=== PATIENT | male | born 1960 | race Caucasian/White ===

== ENCOUNTER 2023-06-01 06:18 | Outpatient (REF) | payer MEDICARE, SELFPAY ==
[2023-06-01 06:26] LABS: MANUAL DIFF FLAG NO
[2023-06-01 06:37] LABS: Basophils Percent Auto 0.7 % (0-2); Eosinophils Absolute Auto 0.1 X10*3/uL (0.0-0.4); Eosinophils Percent Auto 3.1 % (0-4); Hematocrit 36.2 % (42.0-52.0); Hemoglobin 12.3 g/dl (14.0-18.0); Imm Gran Abs Auto 0.02 X10*3/uL (0.00-0.03); Imm Gran Pct Auto 0.4 % (0.0-0.4); Lymphocytes Absolute Auto 1.8 X10*3/uL (1.2-4.9); Mean Corpuscular Hemoglobin 31.3 pg (27.0-33.0); Mean Corpuscular Volume 92.1 fL (80.0-98.0); Mean Platelet Volume 10.2 fL (9.4-12.4); Monocytes Absolute Auto 0.5 X10*3/uL (0.1-1.2); Monocytes Percent Auto 10.4 % (2-11); Neutrophils Absolute Auto 2.1 x10*3/uL (2.0-8.3); Neutrophils Percent Auto 46.4 % (45-73); Platelet Count 150 X10*3/uL (160-400); Red Blood Count 3.93 X10*6/uL (4.60-5.80); Red Cell Distribution Width 12.5 % (11.0-16.0); White Blood Count 4.5 X10*3/uL (4.8-10.8)
[2023-06-01 06:46] LABS: Valproate 26.4 mcg/mL (50.0-100.0)
[2023-06-01 06:53] LABS: Estimated Average Glucose 120 mg/dL; Hemoglobin A1c % 5.8 %
[2023-06-01 06:57] LABS: Alanine Aminotransferase 9 U/L (0-40); Albumin Level 3.5 g/dL (3.5-5.0); Alkaline Phosphatase 78 U/L (39-117); Anion Gap 13 (12-20); Aspartate Amino Transferase 13 U/L (5-37); Bilirubin Total 0.2 mg/dL (0.0-1.0); Blood Urea Nitrogen 17 mg/dL (9-16); Calcium 9.2 mg/dL (8.4-10.2); Carbon Dioxide 23 mmol/L (22-29); Chloride 110 mmol/L (96-108); Estimated Glomerular Filt Rate > 60; Glucose Fasting 111 mg/dL (60-99); Iron 61 mcg/dL (45-160); Percent Iron Saturation 26 % (15-50); Potassium 4.2 mmol/L (3.3-5.1); Sodium 142 mmol/L (135-145); Total Iron Binding Capacity 235 mcg/dL (228-428); Total Protein 6.1 g/dL (6.5-8.0); Unsaturated Iron Binding 174 ug/dL
[2023-06-01 07:12] LABS: Ferritin 92 ng/mL (20-250); Thyroid Stimulating Hormone 1.65 uIU/mL (0.32-4.0)
[2023-06-01 07:24] LABS: Folate 5.5 ng/mL (> or = 4.0); Vitamin B12 430 pg/mL (200-900)
[2023-06-04 04:49] LABS: TS Negative Control Passed; TS Panel A 2; TS Panel B 2; TS Positive Control Passed; TSpotTB Negative (Negative)
== END 2023-06-01 06:19 | disposition home or self-care (01) ==
LOC: HO.HSH2N 06:18
PROVIDERS: Visit Provider Internal Medicine
DX: Z11.1 Encounter for screening for respiratory tuberculosis (principal); F03.90 Unspecified dementia, unspecified severity, without behavioral disturbance, psychotic disturbance, mood disturbance, and anxiety; E11.9 Type 2 diabetes mellitus without complications; D69.6 Thrombocytopenia, unspecified
CPT/HCPCS: 36415; 80053; 80164; 82607; 82728; 82746; 83036; 83540; 84443; 85025; 86481

== ENCOUNTER 2023-08-01 11:38 | Outpatient (REF) | payer SELFPAY | END 2023-08-01 11:39 | disposition home or self-care (01) | LOC: HO.HSH2N 11:38 | PROVIDERS: Visit Provider Internal Medicine Interventional Cardiology | DX: Z13.89 Encounter for screening for other disorder (principal) ==

== ENCOUNTER 2023-12-04 05:04 | Outpatient (REF) | payer MEDICARE, SELFPAY ==
[2023-12-04 07:01] LABS: MANUAL DIFF FLAG NO
[2023-12-04 07:12] LABS: Basophils Percent Auto 0.7 % (0-2); Eosinophils Absolute Auto 0.1 X10*3/uL (0.0-0.4); Eosinophils Percent Auto 2.2 % (0-4); Hematocrit 41.1 % (42.0-52.0); Imm Gran Abs Auto 0.03 X10*3/uL (0.00-0.03); Imm Gran Pct Auto 0.5 % (0.0-0.4); Lymphocytes Absolute Auto 1.6 X10*3/uL (1.2-4.9); Lymphocytes Percent Auto 25.8 % (20-40); Mean Corpuscular HGB Conc 34.1 g/dl (31.0-36.0); Mean Corpuscular Hemoglobin 30.6 pg (27.0-33.0); Mean Corpuscular Volume 89.7 fL (80.0-98.0); Mean Platelet Volume 9.4 fL (9.4-12.4); Monocytes Absolute Auto 0.6 X10*3/uL (0.1-1.2); Monocytes Percent Auto 9.3 % (2-11); Neutrophils Absolute Auto 3.7 x10*3/uL (2.0-8.3); Neutrophils Percent Auto 61.5 % (45-73); Platelet Count 147 X10*3/uL (160-400); Red Blood Count 4.58 X10*6/uL (4.60-5.80); Red Cell Distribution Width 12.9 % (11.0-16.0)
[2023-12-04 07:22] LABS: Estimated Average Glucose 174 mg/dL; Hemoglobin A1c % 7.7 % (<6.0)
[2023-12-04 07:25] LABS: Anion Gap 12 (12-20); Blood Urea Nitrogen 16 mg/dL (9-16); Carbon Dioxide 27 mmol/L (22-29); Chloride 107 mmol/L (96-108); Estimated Glomerular Filt Rate > 60; Glucose Fasting 193 mg/dL (60-99); Potassium 4.4 mmol/L (3.3-5.1); Sodium 142 mmol/L (135-145)
== END 2023-12-04 05:05 | disposition home or self-care (01) ==
LOC: HO.HSH2N 05:04
PROVIDERS: Visit Provider Internal Medicine Interventional Cardiology
DX: E11.9 Type 2 diabetes mellitus without complications (principal); D69.6 Thrombocytopenia, unspecified
CPT/HCPCS: 36415; 80048; 83036; 85025

== ENCOUNTER 2023-12-29 05:57 | Outpatient (REF) | payer SELFPAY ==
[2023-12-29 06:41] LABS: Estimated Average Glucose 183 mg/dL
== END 2023-12-29 05:58 | disposition home or self-care (01) ==
LOC: HO.HSH2N 05:57
PROVIDERS: Visit Provider Internal Medicine Interventional Cardiology
DX: E11.9 Type 2 diabetes mellitus without complications (principal)
CPT/HCPCS: 36415; 83036

== ENCOUNTER 2024-01-05 06:53 | Outpatient (REF) | payer MEDICARE, SELFPAY ==
[2024-01-05 07:10] LABS: Estimated Average Glucose 180 mg/dL; Hemoglobin A1c % 7.9 % (<6.0)
== END 2024-01-05 06:54 | disposition home or self-care (01) ==
LOC: HO.HSH2N 06:53
PROVIDERS: Visit Provider Internal Medicine Interventional Cardiology
DX: E11.9 Type 2 diabetes mellitus without complications (principal)
CPT/HCPCS: 36415; 83036

== ENCOUNTER 2024-02-12 05:53 | Outpatient (REF) | payer SELFPAY ==
[2024-02-12 06:32] LABS: Estimated Average Glucose 183 mg/dL
== END 2024-02-12 05:54 | disposition home or self-care (01) ==
LOC: HO.HSH2N 05:53
PROVIDERS: Visit Provider Internal Medicine Interventional Cardiology
DX: Z13.89 Encounter for screening for other disorder (principal)
CPT/HCPCS: 36415; 83036

== ENCOUNTER 2024-06-11 07:05 | Outpatient (REF) | payer SELFPAY ==
[2024-06-11 07:09] LABS: MANUAL DIFF FLAG NO
[2024-06-11 07:38] LABS: Basophils Percent Auto 0.5 % (0-2); Eosinophils Absolute Auto 0.1 X10*3/uL (0.0-0.4); Hematocrit 42.1 % (42.0-52.0); Hemoglobin 14.4 g/dl (14.0-18.0); Imm Gran Abs Auto 0.03 X10*3/uL (0.00-0.03); Imm Gran Pct Auto 0.5 % (0.0-0.4); Lymphocytes Absolute Auto 1.8 X10*3/uL (1.2-4.9); Lymphocytes Percent Auto 27.2 % (20-40); Mean Corpuscular HGB Conc 34.2 g/dl (31.0-36.0); Mean Corpuscular Hemoglobin 31.3 pg (27.0-33.0); Mean Corpuscular Volume 91.5 fL (80.0-98.0); Mean Platelet Volume 9.9 fL (9.4-12.4); Monocytes Absolute Auto 0.6 X10*3/uL (0.1-1.2); Monocytes Percent Auto 9.3 % (2-11); Neutrophils Absolute Auto 3.9 x10*3/uL (2.0-8.3); Neutrophils Percent Auto 60.5 % (45-73); Platelet Count 164 X10*3/uL (160-400); White Blood Count 6.5 X10*3/uL (4.8-10.8)
[2024-06-11 07:58] LABS: Valproate 28.1 mcg/mL (50.0-100.0)
[2024-06-11 08:02] LABS: Alanine Aminotransferase 15 U/L (0-40); Albumin Level 3.8 g/dL (3.5-5.0); Alkaline Phosphatase 69 U/L (39-117); Anion Gap 15 (12-20); Aspartate Amino Transferase 14 U/L (5-37); Bilirubin Total 0.4 mg/dL (0.0-1.0); Blood Urea Nitrogen 13 mg/dL (9-16); Calcium 9.3 mg/dL (8.4-10.2); Carbon Dioxide 21 mmol/L (22-29); Chloride 109 mmol/L (96-108); Estimated Glomerular Filt Rate > 60; Glucose Random 133 mg/dL (60-115); Potassium 4.1 mmol/L (3.3-5.1); Sodium 141 mmol/L (135-145); Total Protein 6.6 g/dL (6.5-8.0)
[2024-06-11 08:03] LABS: Estimated Average Glucose 140 mg/dL; Hemoglobin A1c % 6.5 % (<6.0)
[2024-06-11 08:17] LABS: Thyroid Stimulating Hormone 1.85 uIU/mL (0.32-4.0)
== END 2024-06-11 07:06 | disposition home or self-care (01) ==
LOC: HO.HSH2N 07:05
PROVIDERS: Visit Provider Internal Medicine Interventional Cardiology
DX: F03.90 Unspecified dementia, unspecified severity, without behavioral disturbance, psychotic disturbance, mood disturbance, and anxiety (principal); E11.9 Type 2 diabetes mellitus without complications
CPT/HCPCS: 36415; 80053; 80164; 83036; 84443; 85025

== ENCOUNTER 2024-07-08 09:23 | Inpatient (IN) | payer OTHER, MEDICARE, SELFPAY ==
[2024-07-08] VITALS (7 sets, daily range): BP systolic 92–134; BP diastolic 41–71; PULSE 37–99; RESP 15–20; TEMP 36.4–36.8; O2SAT 91–99; BMI 28.2
--- NOTE | ~2024-07-08 | CT_ITS ---
EXAMINATION: CT HEAD WITHOUT CONTRAST CLINICAL INFORMATION: Seizure. COMPARISON: None available. TECHNIQUE: Contiguous axial imaging was performed from the skull base to vertex without intravenous administration of contrast. This CT examination was performed using dose optimization techniques as appropriate, variously including the following: *Automated exposure control *Adjustment of mA and/or kV according to patient size (this includes techniques or standardized protocols for targeted exams where dose is matched to indication/reason for exam; i.e. extremities or head) *Use of iterative reconstruction technique DLP: 697 mGy-cm FINDINGS: There is no evidence of acute intracranial hemorrhage or territorial infarction. No mass effect or midline shift is seen. No extra-axial fluid collections are identified. Proportional prominence of the ventricles and sulcal spaces is consistent with moderate volume loss. Patchy periventricular and deep white matter hypoattenuation is consistent with mild small vessel ischemic changes. The osseous structures and soft tissues are normal. The mastoid air cells and visualized portions of the paranasal sinuses are well aerated. CT/CT head/brain wo IV con IMPRESSION: No acute intracranial pathology. Electronically signed by: Niels Morales MD 07/08/2024 11:59 AM EDT
--- NOTE | ~2024-07-08 | XR_ITS ---
EXAMINATION: XR CHEST CLINICAL INFORMATION: Seizure. COMPARISON: None available. TECHNIQUE: Frontal view of the chest was obtained. FINDINGS: Linear scarring versus atelectasis in the right midlung. The lungs are otherwise clear. The cardiomediastinal silhouette is normal in size. There is no pleural effusion or pneumothorax. No acute osseous abnormality. XR/XR chest 1V IMPRESSION: No acute cardiopulmonary findings. Electronically signed by: Dejon Alexis MD 07/08/2024 12:02 PM EDT
--- NOTE | 2024-07-08 09:43 | ED_ITS ---
HPI - General Adult General Chief complaint: Seizure Stated complaint: SZ FROM SNF PER EMS Time Seen by Provider: 07/08/24 09:43 Source: patient and EMS Mode of arrival: EMS Limitations: physical limitation (patient has a history of Alzheimer's disease) History of Present Illness ED Provider: Myesha Tanner PA-C HPI narrative: Patient is a 64 year old assigned male at with a history of Alzheimer's, dementia, seizure disorder, dysphasia, anxiety, and aphasia presenting to the emergency department today after a possible seizure. [facility] staff states that the patient had a brief episode of unresponsiveness and came out of it. Staff states that it was like a seizure, patient has a known seizure disorder but no cardiac history. Relieving factors: none Exacerbating factors: none Associated symptoms: syncope Treatments prior to arrival: none Related Data Home Medications ?Medication ?Instructions ?Recorded ?Confirmed acetaminophen 325 mg tablet 325 mg PO Q4H PRN pain or fever 07/08/24 07/08/24 bisacodyl 5 mg tablet 5 mg PO BEDTIME PRN Constipation 07/08/24 07/08/24 chlorhexidine gluconate 0.12 % 15 ml buccal BEDTIME 07/08/24 07/08/24 mouthwash divalproex 125 mg tablet,delayed 375 mg PO BID 07/08/24 07/08/24 release gabapentin 100 mg capsule 100 mg PO BID 07/08/24 07/08/24 gabapentin 100 mg capsule 100 mg PO Q8H PRN anxiety/agitation 07/08/24 07/08/24 glipizide 5 mg tablet 5 mg PO DAILY 07/08/24 07/08/24 metformin 500 mg tablet 500 mg PO BID 07/08/24 07/08/24 tamsulosin 0.4 mg capsule 0.4 mg PO BEDTIME 07/08/24 07/08/24 Allergies Allergy/AdvReac Type Severity Reaction Status Date / Time codeine Allergy Unknown Verified 07/08/24 09:52 Penicillins Allergy Unknown Verified 07/08/24 09:52 Review of Systems 2 Review of Systems: Yes Other (patient has a history of Alzheimer's and dementia) Cardiovascular: Cardiovascular: Reports syncope Neurologic: Reports confusion (at baseline) and Reports syncope Psychiatric: Psychiatric: Reports confusion (at baseline) PMFSH Past Medical History Attestation statement: The following information was validated with the patient. Source: old records reviewed, nursing notes reviewed and other (all history obtained from [facility] staff) Social History Social History Unable to assess alcohol history related to: Unknown Use of substances other than those prescribed or required for medical reasons: Unknown Advance Directives: Yes Advance Directives on File: Yes Advance Directives Date on File: 07/08/24 Do you have a plan to hurt others: No Plan Physical Exam ED Vital Signs: Vital Signs - 24 hr 07/08/24 09:35 07/08/24 10:02 07/08/24 10:39 Temperature 98.0 F 97.6 F Pulse Rate 94 78 37 L Respiratory Rate 18 17 Blood Pressure 99/71 97/65 Pulse Oximetry 91 L 95 Oxygen Delivery Method Room Air Room Air BMI result Body Mass Index 28.2 Const General: cooperative, no acute distress, alert, awake and confusion (at baseline) Nutritional Appearance: well nourished Orientation/consciousness: confusion (at baseline) Limitations: no limitations HENMT Head: Yes normal to inspection and Yes atraumatic Ears: hearing grossly normal bilaterally and external ears normal General nose exam: Normal external nose present, no nasal discharge noted and no epistaxis Face and sinus: Yes normal facial exam, No abrasion and No laceration Mouth: Normal oral and palatal mucosa present, no drooling and no muffled voice Eyes General: appearance normal, both eyes and all related structures Periorbital: periorbital findings normal Eyelids: Yes eyelids normal Conjunctivae: conjunctivae normal Pupils: Equal, round and reactive pupils present EOM: EOMs intact bilaterally Neck Neck: Yes normal visual inspection, Yes full ROM and Yes no lymphadenopathy Chest Chest palpation & inspection: normal inspection of the chest Resp Effort & Inspection: normal respiratory effort and able to speak in complete sentences GI Inspection: Yes normal to inspection Neuro General: moves all extremities and confusion (at baseline) Cranial nerves: Yes Equal, round and reactive pupils present Extrem General: Yes normal to inspection, Yes full ROM and Yes capillary refill normal Medical Decision Making Medical Decision Making MDM Narrative: Patient is a 64 year old assigned male at with a history of Alzheimer's, dementia, seizure disorder, dysphasia, anxiety, and aphasia presenting to the emergency department today after a possible seizure. Patient's physical exam is consistent with his baseline. Patient's blood work was unremarkable. Patient's EKG was unremarkable. Patient's chest x-ray and head CT showed no acute process. While in the department, the patient had a long cardiac pause consistent with symptomatic bradycardia. I consulted the commercial airline pilot who recommended medical admission for possible pacemaker placement. I spoke to the patient's who stated she would like to hear from the commercial airline pilot before consenting to the procedure. I spoke to the hospitalist team who agreed to admission. I explained my physical exam findings as well as all test results to the patient and the patient's . I answered all questions asked by the patient and the patient's . Patient's verbalized agreement and understanding with this treatment plan and admission. Differential Diagnosis Differential Diagnoses: The differential diagnosis associated with the presentation includes Bradycardia Syncope Seizure Admission/Observation Consideration of admission/observation: Escalation of care including admission/observation considered Patient admitted. Consult Healthcare Provider Management of the patient was discussed with: Hospitalist (agreed to admission as noted in the MDM Rationale portion of this note. ) and Hand Quilter (spoke to the commercial airline pilot as noted in the MDM Rationale portion of this note.) Lab Data [facility] Lab Attestation statement: I reviewed the patient's lab results. My interpretation of these results are in the MDM Rationale portion of this note. 07/08/24 10:38 07/08/24 10:38 Labs: Lab Results 07/08/24 Range/Units 10:38 WBC 6.9 (4.8-10.8) X10*3/uL RBC 4.73 (4.60-5.80) X10*6/uL Hgb 15.0 (14.0-18.0) g/dl Hct 43.3 (42.0-52.0) % MCV 91.5 (80.0-98.0) fL MCH 31.7 (27.0-33.0) pg MCHC 34.6 (31.0-36.0) g/dl RDW 12.9 (11.0-16.0) % Plt Count 161 (160-400) X10*3/uL MPV 9.4 (9.4-12.4) fL Immature Gran % (Auto) 0.4 (0.0-0.4) % Neut % (Auto) 74.2 H (45-73) % Lymph % (Auto) 17.2 L (20-40) % Dale % (Auto) 7.0 (2-11) % Eos % (Auto) 0.6 (0-4) % Baso % (Auto) 0.6 (0-2) % Lymph # (Auto) 1.2 (1.2-4.9) X10*3/uL [place] # (Auto) 0.5 (0.1-1.2) X10*3/uL Eos # (Auto) 0.0 (0.0-0.4) X10*3/uL Baso # (Auto) 0.0 (0.0-0.2) X10*3/uL Abs Immat Gran (auto) 0.03 (0.00-0.03) X10*3/uL Absolute Neuts (auto) 5.1 (2.0-8.3) x10*3/uL Absolute Nucleated RBC 0.000 (0.0-0.012) X10*3/uL Nucleated RBC % (auto) 0.0 (0.0-0.2) /100WBC Sodium 140 (135-145) mmol/L Potassium 4.8 (3.3-5.1) mmol/L Chloride 108 (96-108) mmol/L Carbon Dioxide 23 (22-29) mmol/L Anion Gap 14 (12-20) BUN 13 (9-16) mg/dL Creatinine 0.86 (0.5-1.4) mg/dL Estim Creat Clear Calc 97.7 Estimated GFR > 60 Random Glucose 162 H (60-115) mg/dL Calcium 9.4 (8.4-10.2) mg/dL Magnesium 2.0 (1.6-2.6) mg/dL Total Bilirubin 0.3 (0.0-1.0) mg/dL AST 12 (5-37) U/L ALT 15 (0-40) U/L Alkaline Phosphatase 76 (39-117) U/L Total Creatine Kinase 75 (38-174) U/L Total Protein 7.1 (6.5-8.0) g/dL Albumin 4.0 (3.5-5.0) g/dL TSH 2.79 (0.32-4.0) uIU/mL Influenza Type A (PCR) NEGATIVE (Negative) Influenza Type B (PCR) NEGATIVE (Negative) RSV RNA Qual (PCR) NEGATIVE (Negative) SARS-CoV-2 RNA (RT-PCR) NEGATIVE (Negative) Independent Interpretation I performed an independent interpretation of an: EKG, Plain X-Ray and CT Scan Interpretation: My interpretation is in agreement with the radiologist's impression of these imaging studies. L EXAMINATION: XR CHEST CLINICAL INFORMATION: Seizure. COMPARISON: None available. TECHNIQUE: Frontal view of the chest was obtained. FINDINGS: Linear scarring versus atelectasis in the right midlung. The lungs are otherwise clear. The cardiomediastinal silhouette is normal in size. There is no pleural effusion or pneumothorax. No acute osseous abnormality. XR/XR chest 1V IMPRESSION: No acute cardiopulmonary findings. Electronically signed by: Dejon Alexis MD 07/08/2024 12:02 PM EDT RP Dictated By: Dejon Alexis MD Signed By: Electronically signed by Dejon Alexis MD 07/08/24 1202 EXAMINATION: CT HEAD WITHOUT CONTRAST CLINICAL INFORMATION: Seizure. COMPARISON: None available. TECHNIQUE: Contiguous axial imaging was performed from the skull base to vertex without intravenous administration of contrast. This CT examination was performed using dose optimization techniques as appropriate, variously including the following: *Automated exposure control *Adjustment of mA and/or kV according to patient size (this includes techniques or standardized protocols for targeted exams where dose is matched to indication/reason for exam; i.e. extremities or head) *Use of iterative reconstruction technique DLP: 697 mGy-cm FINDINGS: There is no evidence of acute intracranial hemorrhage or territorial infarction. No mass effect or midline shift is seen. No extra-axial fluid collections are identified. Proportional prominence of the ventricles and sulcal spaces is consistent with moderate volume loss. Patchy periventricular and deep white matter hypoattenuation is consistent with mild small vessel ischemic changes. The osseous structures and soft tissues are normal. The mastoid air cells and visualized portions of the paranasal sinuses are well aerated. CT/CT head/brain wo IV con IMPRESSION: No acute intracranial pathology. Electronically signed by: Niels Morales MD 07/08/2024 11:59 AM EDT RP Dictated By: Jose Morales MD Signed By: Electronically signed by Jose Morales MD 07/08/24 1159 Vent. Rate: 081 BPM Atrial Rate: 081 BPM P-R Int: 198 ms QRS Dur: 092 ms QT Int: 350 ms P-R-T Axes: 052 021 062 degrees QTc Inc: 406 ms Normal sinus rhythm Normal ECG No previous ECGs available DD/ 1005 Radiology Impression Discussion of test interpretation with radiology: I have reviewed the radiologist's reading. Independent Historian Clinical information obtained from an independent historian. History obtained from or confirmed by: Spouse (patient's provided additional history) and EMS (EMS provided additional history) Critical Care Time Critical Care Time Critical Care Time: Yes Total Critical Care Time: 64 Attestation: I spent 64 minutes of Critical Care Time with this patient. This does not include time spent on separately reported billable procedures. Discharge Plan Discharge Clinical Impression: Symptomatic bradycardia Patient Disposition: Admitted As Inpatient Print Language: Botswanan
--- NOTE | 2024-07-08 09:44 | ECG_ITS ---
Test Reason : POSSIBLE SEIZURE Blood Pressure : / mmHG Vent. Rate : 081 BPM Atrial Rate : 081 BPM P-R Int : 198 ms QRS Dur : 092 ms QT Int : 350 ms P-R-T Axes : 052 021 062 degrees QTc Int : 406 ms Normal sinus rhythm Nonspecific ST abnormality Abnormal ECG No previous ECGs available Referred By: Myesha Tanner Electronically Signed By:LYNDSEY WALKER
--- NOTE | 2024-07-08 10:09 | PHA.MEDREC ---
Pharmacy Consult ? Medication Reconciliation Pharmacy has completed the medication reconciliation, utilized list for [facility] [place].
--- NOTE | 2024-07-08 10:37 | PC.NURSE ---
pt was found to have some dysrhythmia activity noticed on the corporate legal secretary's monitor, a very long pause and heart rate in the 20-30's, when this Rn got to the pt;s bed the pt's monitor was reading hear rate of 37 for a second then back to 60-70's, pt appeared to looking out the left
[2024-07-08 10:42] LABS: MANUAL DIFF FLAG NO
[2024-07-08 10:44] LABS: Basophils Percent Auto 0.6 % (0-2); Eosinophils Percent Auto 0.6 % (0-4); Hematocrit 43.3 % (42.0-52.0); Imm Gran Abs Auto 0.03 X10*3/uL (0.00-0.03); Imm Gran Pct Auto 0.4 % (0.0-0.4); Lymphocytes Absolute Auto 1.2 X10*3/uL (1.2-4.9); Lymphocytes Percent Auto 17.2 % (20-40); Mean Corpuscular HGB Conc 34.6 g/dl (31.0-36.0); Mean Corpuscular Hemoglobin 31.7 pg (27.0-33.0); Mean Corpuscular Volume 91.5 fL (80.0-98.0); Mean Platelet Volume 9.4 fL (9.4-12.4); Monocytes Absolute Auto 0.5 X10*3/uL (0.1-1.2); Neutrophils Absolute Auto 5.1 x10*3/uL (2.0-8.3); Neutrophils Percent Auto 74.2 % (45-73); Platelet Count 161 X10*3/uL (160-400); Red Blood Count 4.73 X10*6/uL (4.60-5.80); Red Cell Distribution Width 12.9 % (11.0-16.0); White Blood Count 6.9 X10*3/uL (4.8-10.8)
[2024-07-08 11:05] LABS: Alanine Aminotransferase 15 U/L (0-40); Alkaline Phosphatase 76 U/L (39-117); Anion Gap 14 (12-20); Aspartate Amino Transferase 12 U/L (5-37); Bilirubin Total 0.3 mg/dL (0.0-1.0); Blood Urea Nitrogen 13 mg/dL (9-16); Calcium 9.4 mg/dL (8.4-10.2); Carbon Dioxide 23 mmol/L (22-29); Chloride 108 mmol/L (96-108); Creatinine Clr Calc Pharmacy 97.7; Estimated Glomerular Filt Rate > 60; Glucose Random 162 mg/dL (60-115); Potassium 4.8 mmol/L (3.3-5.1); Sodium 140 mmol/L (135-145); Total Protein 7.1 g/dL (6.5-8.0)
[2024-07-08 11:24] LABS: Influenza A PCR NEGATIVE (Negative); Influenza B PCR NEGATIVE (Negative); Resp Syncy Virus RNA Qual PCR NEGATIVE (Negative); SARS COV2 PCR INHOUSE NEGATIVE (Negative)
--- NOTE | 2024-07-08 11:38 | P.HPHOSP_ITS ---
History of Present Illness Date of Service: 07/08/24 Attending physician on admission: Alberto Paulino Chief Complaint: ?seizure 64-year-old male with history of Alzheimer's dementia, seizure disorder, dysphagia, anxiety, pica, type 2 dm, and aphasia [facility]. Per staff at the facility, patient had a brief episode of unresponsiveness lasting for several seconds without any notable postictal state. They felt it was similar to seizure activity. Discussed with SHREDDING FLOOR EQUIPMENT OPERATOR who reports the patient became rigid, not responsive to voice or sternal rub. He became more alert and moving extremities but still was not following commands and did not appear attentive which is different from baseline- at baseline pt is alert and ambulatory and able to follow simple commands though not very communicative. On exam, patient is awake and alert, mostly nonverbal though apparently told the aid he was hungry. On arrival, vss. However, developed a 4.5s pause noted on tele monitor with hr 20- 30, currenlty in 70s in NSR. No known cardiac history. Labs unremarkable. Negative for COVID, flu, RSV. CXR negative for any acute cardiopulmonary abnormality. Head CT negative for any acute intracranial abnormality. EKG shows NSR, rate 81, no ST/T-wave abnormalities or significant AV beatriz blocks. Pacer pads in place but patient is not actively being paced. Review of Systems 2 Review of Systems: Yes Unobtainable due to mental condition [facility] Medical History Pica BPH (benign prostatic hyperplasia) Diabetic polyneuropathy Type 2 diabetes mellitus Seizure disorder Alzheimer's dementia Social History Unable to assess alcohol history related to: Unknown Use of substances other than those prescribed or required for medical reasons: Unknown Advance Directives: Yes Advance Directives on File: Yes Advance Directives Date on File: 07/08/24 Do you have a plan to hurt others: No Plan Meds Allergies Allergy/AdvReac Type Severity Reaction Status Date / Time codeine Allergy Unknown Verified 07/08/24 09:52 Penicillins Allergy Unknown Verified 07/08/24 09:52 Home Medications ?Medication ?Instructions ?Recorded ?Confirmed ?Last Taken ?Type acetaminophen 325 mg tablet 325 mg PO Q4H PRN pain or fever 07/08/24 07/08/24 Unknown History bisacodyl 5 mg tablet 5 mg PO BEDTIME PRN Constipation 07/08/24 07/08/24 Unknown History chlorhexidine gluconate 0.12 % 15 ml buccal BEDTIME 07/08/24 07/08/24 Unknown History mouthwash divalproex 125 mg tablet,delayed 375 mg PO BID 07/08/24 07/08/24 Unknown History release gabapentin 100 mg capsule 100 mg PO BID 07/08/24 07/08/24 Unknown History gabapentin 100 mg capsule 100 mg PO Q8H PRN anxiety/agitation 07/08/24 07/08/24 Unknown History glipizide 5 mg tablet 5 mg PO DAILY 07/08/24 07/08/24 Unknown History metformin 500 mg tablet 500 mg PO BID 07/08/24 07/08/24 Unknown History tamsulosin 0.4 mg capsule 0.4 mg PO BEDTIME 07/08/24 07/08/24 Unknown History Physical Exam 2 Vital Signs and Narrative: Vital Signs: Last Vital Signs Temp 97.6 F 07/08/24 10:02 Pulse 37 L 07/08/24 10:39 Resp 17 07/08/24 10:02 BP 97/65 07/08/24 10:02 Pulse Ox 95 07/08/24 10:02 O2 Del Method Room Air 07/08/24 10:02 BMI result Body Mass Index 28.2 ]Constitutional - Awake and Alert, No apparent distress Eyes - PERRLA, EOMI Cardiovascular - S1S2, RRR, No edema Respiratory - Normal lung expansion, Normal respiratory effort, No respiratory distress, CTA bilaterally Gastrointestinal - NT / ND; +BS; No rebound or guarding Extremities - no calf tenderness bilaterally, no swelling Skin - Warm/Dry Neurological - Alert & awake, aphasic, following some commands, unable to fully assess cranial nerves, but EOMs appear to be in tact, face symmetric, nonverbal. 5/5 strength BUE and BLE Psychological - Appropriate affect Results Labs 07/08/24 10:38 07/08/24 10:38 Labs: Laboratory Results - last 24 hr 07/08/24 10:38 MCV 91.5 MCH 31.7 MCHC 34.6 RDW 12.9 Plt Count 161 MPV 9.4 Immature Gran % (Auto) 0.4 Neut % (Auto) 74.2 H Lymph % (Auto) 17.2 L [place] % (Auto) 7.0 Eos % (Auto) 0.6 Baso % (Auto) 0.6 Lymph # (Auto) 1.2 [place] # (Auto) 0.5 Eos # (Auto) 0.0 Baso # (Auto) 0.0 Abs Immat Gran (auto) 0.03 Absolute Neuts (auto) 5.1 Absolute Nucleated RBC 0.000 Nucleated RBC % (auto) 0.0 Anion Gap 14 Estim Creat Clear Calc 97.7 Estimated GFR > 60 Random Glucose 162 H Calcium 9.4 Magnesium 2.0 Total Bilirubin 0.3 AST 12 ALT 15 Alkaline Phosphatase 76 Total Creatine Kinase 75 Total Protein 7.1 Albumin 4.0 Influenza Type A (PCR) NEGATIVE Influenza Type B (PCR) NEGATIVE RSV RNA Qual (PCR) NEGATIVE SARS-CoV-2 RNA (RT-PCR) NEGATIVE Assessment and Plan (1) Unresponsive: Status: Acute (2) Symptomatic bradycardia: Status: Acute Plan 64-year-old male with history of Alzheimer's dementia, seizure disorder, dysphagia, anxiety, pica, type 2 dm, and aphasia admitted for unresponsiveness suspected to be related to symptomatic bradycardia #Period of unresponsiveness- symptomatic bradycardia though less likely breakthrough seizure -4.5 second pause noted on monitor with hr 20-30. EKG without any blocks -keep pacer pads on -Blood pressures soft, but no hypotension -cardiology consult- plan for possible pacemaker. Keep NPO for now in case of procedure -check EEG, but low suspicion for breakthrough seizure -monitor on telemetry # [id number] type 2 diabetes -POC glucose. NPO for now in case of procedure, advanced to diabetic diet -Humalog on sliding scale # Alzheimer's dementia -mentation baseline per at bedside # unspecified seizure disorder -continue Depakote # BPH -continue Flomax # diabetic polyneuropathy -gabapentin dvt prophylaxis- scps for now, [facility] pt requires inpt stay at least 2 midnights due to period of unresponsiveness likely r/t symptomatic bradycardia requiring expert consultation, cardiac monitoring and probable pacemaker placement Quality Stroke Does the patient have a stroke diagnosis?: No VTE Prior VTE?: No VTE Risk Level:: Medical - moderate - high VTE Device Contraindication: N/A - Device Ordered VTE Drug Contraindication: Treatment Not Indicated
[2024-07-08 11:44] LABS: TSH reflex Free T4 2.79 uIU/mL (0.32-4.0)
[2024-07-08] MEDS: Lactated Ringers 1,000 ML 100 ML IVCONT ×2 (13:37→23:29)
[2024-07-08 15:43] LABS: Glucose, Whole Blood 146 mg/dL (60-115)
[2024-07-08] MEDS: Tamsulosin HCL 0.4 MG CAPSULE PO (20:48)
[2024-07-08] MEDS: Chlorhexidine Gluc Oral Rinse 15 ML MOUTHWASH BUCCAL (20:48)
[2024-07-08] MEDS: Gabapentin 100 MG CAPSULE PO (20:48)
[2024-07-08] MEDS: Divalproex Sodium Sprinkles 125 MG CAP.DR.SPR 375 MG PO (20:48)
[2024-07-08 20:54] LABS: Glucose, Whole Blood 141 mg/dL (60-115)
[2024-07-08] MEDS: 0.9 % Sodium Chloride Flush 3 ML SYRINGE IVFLUSH (23:29)
[2024-07-09] VITALS (7 sets, daily range): BP systolic 126–149; BP diastolic 65–82; PULSE 61–73; RESP 16–22; TEMP 36.5–37; O2SAT 94–99
[2024-07-09 07:29] LABS: Glucose, Whole Blood 146 mg/dL (60-115)
[2024-07-09 07:53] LABS: Glucose, Whole Blood 141 mg/dL (60-115)
[2024-07-09 08:17] LABS: MANUAL DIFF FLAG NO
[2024-07-09 08:21] LABS: Basophils Percent Auto 0.5 % (0-2); Eosinophils Absolute Auto 0.1 X10*3/uL (0.0-0.4); Eosinophils Percent Auto 1.1 % (0-4); Hematocrit 39.9 % (42.0-52.0); Hemoglobin 13.5 g/dl (14.0-18.0); Imm Gran Abs Auto 0.01 X10*3/uL (0.00-0.03); Imm Gran Pct Auto 0.2 % (0.0-0.4); Lymphocytes Absolute Auto 1.6 X10*3/uL (1.2-4.9); Lymphocytes Percent Auto 25.8 % (20-40); Mean Corpuscular HGB Conc 33.8 g/dl (31.0-36.0); Mean Corpuscular Hemoglobin 31.5 pg (27.0-33.0); Monocytes Absolute Auto 0.5 X10*3/uL (0.1-1.2); Monocytes Percent Auto 8.3 % (2-11); Neutrophils Percent Auto 64.1 % (45-73); Platelet Count 154 X10*3/uL (160-400); Red Blood Count 4.29 X10*6/uL (4.60-5.80); White Blood Count 6.3 X10*3/uL (4.8-10.8)
[2024-07-09 08:40] LABS: Anion Gap 12 (12-20); Blood Urea Nitrogen 11 mg/dL (9-16); Calcium 8.6 mg/dL (8.4-10.2); Carbon Dioxide 22 mmol/L (22-29); Chloride 110 mmol/L (96-108); Creatinine Clr Calc Pharmacy 112.1; Estimated Glomerular Filt Rate > 60; Glucose Random 139 mg/dL (60-115); Potassium 3.7 mmol/L (3.3-5.1); Sodium 140 mmol/L (135-145)
--- NOTE | 2024-07-09 09:15 | MHC.CM.PN ---
IMM 07/09. Pt with dx Alzheimer's dementia, CM intake assessment and IMM addressed with pts /HCP Rob. Pt is a LTC resident of the [facility] in [place], where he will return via BLS/[facility] once medically cleared. Pt is ambulatory at his baseline. HCP on file and verified. PCP: Dr. Oracio Irizarry
[2024-07-09] MEDS: Lactated Ringers 1,000 ML 100 ML IVCONT ×2 (09:47→20:35)
[2024-07-09] MEDS: Divalproex Sodium Sprinkles 125 MG CAP.DR.SPR 375 MG PO ×2 (09:48→20:36)
[2024-07-09] MEDS: Gabapentin 100 MG CAPSULE PO ×2 (09:48→20:36)
[2024-07-09] MEDS: 0.9 % Sodium Chloride Flush 3 ML SYRINGE IVFLUSH ×2 (09:49→23:12)
--- NOTE | 2024-07-09 10:06 | PM.CNCAR ---
History of Present Illness History of Present Illness Date of Service: 07/09/24 Requesting physician: Evelyn Hall Consult reason: other (Unresponsiveness) Chief complaint: symptomatic bradycardia vs seizure Narrative: I was consulted to see December with in cardiology consultation today because he had an unresponsive episode at [facility] yesterday. Patient was then referred to the emergency room. During the workup while being monitored his heart rate dropped into the 30s with pauses. Patient was completely awake during that time. This was confirmed by the was present at bedside. Patient has early-onset dementia which has led to him having gradually declined and being placed in a [facility] facility. says about 2 years ago while in the facility in [place] he had a similar episode of unresponsiveness was diagnose with seizure disorder. Since then he has not had any further episodes till yesterday. There is no reported heart rate or blood pressure monitoring during this time. Patient went rigid and unresponsive at that time. This was transient that lasted less than a minute. He was then referred to the emergency room. There were no clear tonic clonic movements and/or bladder bowel incontinence. Patient then came to the emergency room where he was in his usual mental status nonverbal but alert. When I saw the patient 1st in the morning was sleep and was not arousable. However subsequently after the family arrived he has been nonverbal but awake. Overnight monitoring has shown no significant bradycardia or pauses. Review of Systems Review of Systems: Yes Unobtainable due to mental status PMFSH Past Medical History Medical History Pica BPH (benign prostatic hyperplasia) Diabetic polyneuropathy Type 2 diabetes mellitus Seizure disorder Alzheimer's dementia Social History Social History Household Members: Other Unable to assess alcohol history related to: Unknown Patient Tobacco Use Status: Never used Tobacco Advance Directives Date on File: 07/08/24 service: Yes Meds Allergies Allergy/AdvReac Type Severity Reaction Status Date / Time codeine Allergy Unknown Verified 07/08/24 09:52 Penicillins Allergy Unknown Verified 07/08/24 09:52 Active Medications: Current Medications Acetaminophen (Acetaminophen 325 Mg Tablet) 650 mg PO Q6H PRN PRN Reason: Pain, Mild (Pain Scale 1-3), fever or headache Bisacodyl (Bisacodyl 5 Mg Tablet.) 5 mg PO BEDTIME PRN PRN Reason: Constipation Calcium Carbonate (Calcium Carbonate 750 Mg Tab.Chew) 750 mg PO Q4H PRN PRN Reason: Heartburn Chlorhexidine Gluconate (Chlorhexidine Gluc Oral Rinse 15 Ml Mouthwash) 15 ml BUCCAL BEDTIME [facility] Last Admin: 07/08/24 20:48 Dose: 15 ml Divalproex Sodium (Divalproex Sodium Sprinkles 125 Mg Cap.) 375 mg PO BID [facility] Last Admin: 07/09/24 09:48 Dose: 375 mg Gabapentin (Gabapentin 100 Mg Capsule) 100 mg PO BID [facility] Last Admin: 07/09/24 09:48 Dose: 100 mg Gabapentin (Gabapentin 100 Mg Capsule) 100 mg PO Q8H PRN PRN Reason: anxiety/agitation Glucose (Glucose Gel 15 Gm Gel..Gram.) 15 gm PO Q15M PRN; Protocol PRN Reason: per Hypoglycemia Standing Ord. Lactated Ringer's (Lr) 1,000 mls @ 100 mls/hr IVCONT .Q10H [facility] Last Admin: 07/09/24 09:47 Dose: 100 mls/hr Dextrose (D10) 250 mls @ 750 mls/hr IV Q15M PRN; Protocol PRN Reason: per Hypoglycemia Standing Ord. Insulin Human Lispro (Insulin Lispro 100 Unit/Ml 3 Ml Vial) 0 unit SUBCUT QIDACHS [facility]; Protocol Last Admin: 07/09/24 09:35 Dose: Not Given Magnesium Hydroxide (Milk Of Magnesia 30 Ml Oral.Susp) 30 ml PO DAILY PRN PRN Reason: Constipation Melatonin (Melatonin 3 Mg Tablet) 6 mg PO BEDTIME PRN PRN Reason: Insomnia Sodium Chloride (0.9 % Sodium Chloride Flush 3 Ml Syringe) 3 ml IVFLUSH QSHIFT [facility] Last Admin: 07/09/24 09:49 Dose: 3 ml Tamsulosin HCl (Tamsulosin Hcl 0.4 Mg Capsule) 0.4 mg PO BEDTIME [facility] Last Admin: 07/08/24 20:48 Dose: 0.4 mg Home Medications ?Medication ?Instructions ?Recorded ?Confirmed ?Last Taken ?Type acetaminophen 325 mg tablet 325 mg PO Q4H PRN pain or fever 07/08/24 07/08/24 Unknown History bisacodyl 5 mg tablet 5 mg PO BEDTIME PRN Constipation 07/08/24 07/08/24 Unknown History chlorhexidine gluconate 0.12 % 15 ml buccal BEDTIME 07/08/24 07/08/24 Unknown History mouthwash divalproex 125 mg tablet,delayed 375 mg PO BID 07/08/24 07/08/24 Unknown History release gabapentin 100 mg capsule 100 mg PO BID 07/08/24 07/08/24 Unknown History gabapentin 100 mg capsule 100 mg PO Q8H PRN anxiety/agitation 07/08/24 07/08/24 Unknown History glipizide 5 mg tablet 5 mg PO DAILY 07/08/24 07/08/24 Unknown History metformin 500 mg tablet 500 mg PO BID 07/08/24 07/08/24 Unknown History tamsulosin 0.4 mg capsule 0.4 mg PO BEDTIME 07/08/24 07/08/24 Unknown History Physical Exam Vital Signs: Vital Signs: Last Vital Signs Temp 97.7 F 07/09/24 07:35 Pulse 65 07/09/24 07:35 Resp 16 07/09/24 07:35 BP 136/76 07/09/24 07:35 Pulse Ox 99 07/09/24 07:35 O2 Del Method Nasal Cannula 07/09/24 07:35 O2 Flow Rate 2 07/09/24 07:35 BMI result Body Mass Index 28.2 Const: General: alert and awake Nutritional Appearance: overweight HEENT: Head: Yes normocephalic and Yes atraumatic Neck: Neck: Yes trachea midline, Yes supple and Yes no JVD Resp: Effort & Inspection: decreased respiratory effort Auscultation: clear to auscultation bilaterally Cardio: Jugular venous distension: no JVD Rate: regular rate Rhythm: regular rhythm Heart sounds: S1 normal heart sound present, S2 normal heart sound present, no click, no gallops and no murmurs GI: Auscultation: normal bowel sounds Skin: General skin exam: no rashes or lesions noted Neuro: General: moves all extremities Extrem: General: Yes no clubbing, cyanosis or edema Objective Labs and Meds 07/09/24 07:13 07/09/24 07:13 Lab results: Laboratory Results - last 24 hr 07/08/24 07/08/24 07/08/24 10:38 15:39 20:45 WBC 6.9 RBC 4.73 Hgb 15.0 Hct 43.3 MCV 91.5 MCH 31.7 MCHC 34.6 RDW 12.9 Plt Count 161 MPV 9.4 Immature Gran % (Auto) 0.4 Neut % (Auto) 74.2 H Lymph % (Auto) 17.2 L Bowie % (Auto) 7.0 Eos % (Auto) 0.6 Baso % (Auto) 0.6 Lymph # (Auto) 1.2 Bowie # (Auto) 0.5 Eos # (Auto) 0.0 Baso # (Auto) 0.0 Abs Immat Gran (auto) 0.03 Absolute Neuts (auto) 5.1 Absolute Nucleated RBC 0.000 Nucleated RBC % (auto) 0.0 Sodium 140 Potassium 4.8 Chloride 108 Carbon Dioxide 23 Anion Gap 14 BUN 13 Creatinine 0.86 Estim Creat Clear Calc 97.7 Estimated GFR > 60 POC Glucose 146 H 141 H Random Glucose 162 H Calcium 9.4 Magnesium 2.0 Total Bilirubin 0.3 AST 12 ALT 15 Alkaline Phosphatase 76 Total Creatine Kinase 75 Total Protein 7.1 Albumin 4.0 TSH 2.79 Influenza Type A (PCR) NEGATIVE Influenza Type B (PCR) NEGATIVE RSV RNA Qual (PCR) NEGATIVE SARS-CoV-2 RNA (RT-PCR) NEGATIVE 07/09/24 07/09/24 07/09/24 07:07 07:13 07:45 WBC 6.3 RBC 4.29 L Hgb 13.5 L Hct 39.9 L MCV 93.0 MCH 31.5 MCHC 33.8 RDW 13.0 Plt Count 154 L MPV 10.0 Immature Gran % (Auto) 0.2 Neut % (Auto) 64.1 Lymph % (Auto) 25.8 Bowie % (Auto) 8.3 Eos % (Auto) 1.1 Baso % (Auto) 0.5 Lymph # (Auto) 1.6 Bowie # (Auto) 0.5 Eos # (Auto) 0.1 Baso # (Auto) 0.0 Abs Immat Gran (auto) 0.01 Absolute Neuts (auto) 4.0 Absolute Nucleated RBC 0.000 Nucleated RBC % (auto) 0.0 Sodium 140 Potassium 3.7 D Chloride 110 H Carbon Dioxide 22 Anion Gap 12 BUN 11 Creatinine 0.75 Estim Creat Clear Calc 112.1 Estimated GFR > 60 POC Glucose 146 H 141 H Random Glucose 139 H Calcium 8.6 D Magnesium Total Bilirubin AST ALT Alkaline Phosphatase Total Creatine Kinase Total Protein Albumin TSH Influenza Type A (PCR) Influenza Type B (PCR) RSV RNA Qual (PCR) SARS-CoV-2 RNA (RT-PCR) Imaging Radiologist's impression: Impressions Head CT 07/08/24 10:59 IMPRESSION: No acute intracranial pathology. Electronically signed by: Niels Morales MD 07/08/2024 11:59 AM EDT RP Chest X-Ray 07/08/24 11:00 IMPRESSION: No acute cardiopulmonary findings. Electronically signed by: Dejon Alexis MD 07/08/2024 12:02 PM EDT RP Assessment and Plan (1) Unresponsive: Status: Acute Plan Reported unresponsive episode of [facility] facility without any hemodynamic monitoring at that time to suggest this was cardiac in origin. Could be neurologic with absence seizures. Consider Neurology consultation. Subsequently in the emergency room he had asymptomatic bradycardia with heart rate in the 30s with pauses up to 3.5 seconds. Possibility of sick sinus syndrome exist although there was no other evidence overnight on monitoring. Given that there was no correlation between these 2 episodes I would consider prolonged monitoring. Discussed with the family about no obvious indication for pacing therapy. Would avoid rate lowering medications. Would consider implantable loop recorder placement to assess whether he would benefit from a pacemaker therapy in the future. Family is agreeable with this management plan. Will schedule for him either today or tomorrow. Will follow with you Procedures Date of Service Date of Service: 07/09/24
[2024-07-09 11:24] LABS: Glucose, Whole Blood 149 mg/dL (60-115)
--- NOTE | 2024-07-09 14:48 | HO.PM.IMPN ---
Subjective Subjective Date of Service: 07/09/24 Interval History: No acute issues overnight. Awaiting loop recorder in a.m. Review of Systems Unable to obtain Physical Exam Vital Signs: Vital Signs: Last Vital Signs Temp 98.1 F 07/09/24 11:30 Pulse 64 07/09/24 11:30 Resp 16 07/09/24 11:30 BP 132/68 07/09/24 11:30 Pulse Ox 96 07/09/24 11:30 O2 Del Method Room Air 07/09/24 11:30 O2 Flow Rate 2 07/09/24 07:35 BMI result Body Mass Index 28.2 Const: Other: Awake alert nonverbal Resp: Other: Clear to auscultation bilaterally no rales rhonchi or wheezes Cardio: Other: No S4; positive S1-S2; no S3 murmurs rubs or gallops GI: Other: Soft nontender nondistended normoactive bowel sounds Extrem: Other: No edema bilaterally Objective Data Active Medications Acetaminophen (Acetaminophen 325 Mg Tablet) 650 mg PO Q6H PRN PRN Reason: Pain, Mild (Pain Scale 1-3), fever or headache Bisacodyl (Bisacodyl 5 Mg Tablet.Dr) 5 mg PO BEDTIME PRN PRN Reason: Constipation Calcium Carbonate (Calcium Carbonate 750 Mg Tab.Chew) 750 mg PO Q4H PRN PRN Reason: Heartburn Chlorhexidine Gluconate (Chlorhexidine Gluc Oral Rinse 15 Ml Mouthwash) 15 ml BUCCAL BEDTIME [facility] Last Admin: 07/08/24 20:48 Dose: 15 ml Documented By: TIFFANIE Divalproex Sodium (Divalproex Sodium Sprinkles 125 Mg ) 375 mg PO BID [facility] Last Admin: 07/09/24 09:48 Dose: 375 mg Documented By: BRIJESH Gabapentin (Gabapentin 100 Mg Capsule) 100 mg PO BID [facility] Last Admin: 07/09/24 09:48 Dose: 100 mg Documented By: BRIJESH Gabapentin (Gabapentin 100 Mg Capsule) 100 mg PO Q8H PRN PRN Reason: anxiety/agitation Glucose (Glucose Gel 15 Gm Gel..Gram.) 15 gm PO Q15M PRN; Protocol PRN Reason: per Hypoglycemia Standing Ord. Lactated Ringer's (Lr) 1,000 mls @ 100 mls/hr IVCONT .Q10H [facility] Last Admin: 07/09/24 09:47 Dose: 100 mls/hr Documented By: BRIJESH Dextrose (D10) 250 mls @ 750 mls/hr IV Q15M PRN; Protocol PRN Reason: per Hypoglycemia Standing Ord. Insulin Human Lispro (Insulin Lispro 100 Unit/Ml 3 Ml Vial) 0 unit SUBCUT QIDACHS [facility]; Protocol Last Admin: 07/09/24 12:55 Dose: Not Given Documented By: BRIJESH Non-Admin Reason: No Insulin Coverage Magnesium Hydroxide (Milk Of Magnesia 30 Ml Oral.Susp) 30 ml PO DAILY PRN PRN Reason: Constipation Melatonin (Melatonin 3 Mg Tablet) 6 mg PO BEDTIME PRN PRN Reason: Insomnia Sodium Chloride (0.9 % Sodium Chloride Flush 3 Ml Syringe) 3 ml IVFLUSH QSHIFT [facility] Last Admin: 07/09/24 09:49 Dose: 3 ml Documented By: BRIJESH Tamsulosin HCl (Tamsulosin Hcl 0.4 Mg Capsule) 0.4 mg PO BEDTIME [facility] Last Admin: 07/08/24 20:48 Dose: 0.4 mg Documented By: TIFFANIE Labs 07/09/24 07:13 07/09/24 07:13 Labs: Laboratory Results - last 24 hr 07/08/24 07/08/24 07/09/24 15:39 20:45 07:07 MCV MCH MCHC RDW Plt Count MPV Immature Gran % (Auto) Neut % (Auto) Lymph % (Auto) Stewart % (Auto) Eos % (Auto) Baso % (Auto) Lymph # (Auto) Stewart # (Auto) Eos # (Auto) Baso # (Auto) Abs Immat Gran (auto) Absolute Neuts (auto) Absolute Nucleated RBC Nucleated RBC % (auto) Anion Gap Estim Creat Clear Calc Estimated GFR POC Glucose 146 H 141 H 146 H Random Glucose Calcium 07/09/24 07/09/24 07/09/24 07:13 07:45 11:20 MCV 93.0 MCH 31.5 MCHC 33.8 RDW 13.0 Plt Count 154 L MPV 10.0 Immature Gran % (Auto) 0.2 Neut % (Auto) 64.1 Lymph % (Auto) 25.8 Stewart % (Auto) 8.3 Eos % (Auto) 1.1 Baso % (Auto) 0.5 Lymph # (Auto) 1.6 Stewart # (Auto) 0.5 Eos # (Auto) 0.1 Baso # (Auto) 0.0 Abs Immat Gran (auto) 0.01 Absolute Neuts (auto) 4.0 Absolute Nucleated RBC 0.000 Nucleated RBC % (auto) 0.0 Anion Gap 12 Estim Creat Clear Calc 112.1 Estimated GFR > 60 POC Glucose 141 H 149 H Random Glucose 139 H Calcium 8.6 D Assessment and Plan (1) Symptomatic bradycardia: Status: Acute Plan 64-year-old male with history of Alzheimer's dementia, seizure disorder, dysphagia, anxiety, pica, type 2 dm, and aphasia admitted for unresponsiveness suspected to be related to symptomatic bradycardia 1. Symptomatic bradycardia -NPO after midnight for ILD placement in a.m. -keep pacer pads on -monitor on telemetry 2.Hnv-[id number]-[id number] type 2 diabetes -acceptable control on current therapies -lispro correctional scale -adjust as indicated 3.Alzheimer's dementia -stable and well compensated 4.Unspecified seizure disorder -continue Depakote dnr/dni per luis manuel Tanner HCP- , Rob Requires ongoing hospitalization for monitoring for symptomatic bradycardia in anticipation of loop recorder in a.m. Quality Stroke Does the patient have a stroke diagnosis?: No VTE Prior VTE?: No VTE Risk Level:: Medical - moderate - high VTE Device Contraindication: N/A - Device Ordered VTE Drug Contraindication: Treatment Not Indicated
[2024-07-09 15:36] LABS: Glucose, Whole Blood 129 mg/dL (60-115)
[2024-07-09] MEDS: Chlorhexidine Gluc Oral Rinse 15 ML MOUTHWASH BUCCAL (20:36)
[2024-07-09 20:44] LABS: Glucose, Whole Blood 174 mg/dL (60-115)
[2024-07-09] MEDS: Insulin Lispro 100 UNIT/ML 3 ML VIAL SUBCUT (20:45)
[2024-07-09] MEDS: Tamsulosin HCL 0.4 MG CAPSULE PO (20:45)
[2024-07-10] VITALS (10 sets, daily range): BP systolic 122–150; BP diastolic 72–79; PULSE 58–100; RESP 16–20; TEMP 36.2–37.2; O2SAT 93–98; BMI 28.2
[2024-07-10] MEDS: Lactated Ringers 1,000 ML 100 ML IVCONT (05:35)
[2024-07-10 07:52] LABS: Glucose, Whole Blood 144 mg/dL (60-115)
[2024-07-10] MEDS: Divalproex Sodium Sprinkles 125 MG CAP.DR.SPR 375 MG PO ×2 (08:08→21:53)
[2024-07-10] MEDS: Gabapentin 100 MG CAPSULE PO ×2 (08:08→21:53)
--- NOTE | 2024-07-10 11:42 | PM.PNCARD ---
Subjective Subjective Date of Service: 07/10/24 Principal diagnosis: Unresponsiveness, bradycardia Interval history: No overnight bradycardia or pauses. No reported symptoms. Hemodynamically stable Review of Systems Review of Systems Yes Unobtainable due to mental status Physical Exam Vital Signs: Last Vital Signs Temp 97.3 F 07/10/24 07:56 Pulse 64 07/10/24 07:56 Resp 19 07/10/24 08:00 BP 150/72 H 07/10/24 07:56 Pulse Ox 93 07/10/24 07:56 O2 Del Method Room Air 07/10/24 07:56 O2 Flow Rate 2 07/09/24 21:23 BMI result Body Mass Index 28.2 Const General: alert and awake Nutritional Appearance: overweight HEENT Head: Yes normocephalic and Yes atraumatic Neck Neck: Yes trachea midline, Yes supple and Yes no JVD Resp Effort & Inspection: decreased respiratory effort Auscultation: clear to auscultation bilaterally Cardio Jugular venous distension: no JVD Rate: regular rate Rhythm: regular rhythm Heart sounds: S1 normal heart sound present, S2 normal heart sound present, no click, no gallops and no murmurs GI Auscultation: normal bowel sounds Skin General skin exam: no rashes or lesions noted Neuro General: moves all extremities Extrem General: Yes no clubbing, cyanosis or edema Objective Labs and Meds 07/09/24 07:13 07/09/24 07:13 Lab results: Laboratory Results - last 24 hr 07/09/24 07/09/24 07/10/24 15:33 20:41 07:49 POC Glucose 129 H 174 H 144 H Progress Note: A&P Assessment and plan (1) Unresponsive: Status: Acute Assessment and Plan: Patient present with a unresponsive episode of unclear etiology with noted bradycardia while in the ED. unclear if these 2 are related. Patient planned to undergo implantable loop recorder placement with monitoring as outpatient. Discussed with about the same as patient is not able to participate in his own health. Will be scheduled later today. Risks and benefits were discussed. Will follow Time Spent With Patient Time: Total time managing care of this patient today ____ minutes. Progress Note: Quality Stroke Does the patient have a stroke diagnosis?: No Procedures Date of Service Date of Service: 07/10/24
--- NOTE | 2024-07-10 12:03 | MHC.CM.PN ---
Addendum entered by Radha Samuel 07/10/24 15:31: [facility] was updated about pts discharge tomorrow. Addendum entered by Radha Samuel 07/10/24 15:25: Per hospitalist, p[facility]. Pt still awaiting loop recorder placement, and is not able [facility], pts is aware. Pt will discharge home tomorrow am, [facility] pre-booked for 11am tomorrow 07/11. Original Note: EMR reviewed and per MD rounds, pt is not medically cleared for discharge due to pending loop recorder placement today.
[2024-07-10 12:07] LABS: Glucose, Whole Blood 138 mg/dL (60-115)
[2024-07-10] MEDS: 0.9 % Sodium Chloride Flush 3 ML SYRINGE IVFLUSH (15:03)
--- NOTE | 2024-07-10 15:07 | P.DS_ITS ---
DS: Providers Provider Date of Service: 07/10/24 Date of admission: 07/08/24 12:03 Date of discharge: 07/10/24 Primary care physician: Oracio Irizarry MD Consults: 07/08/24 12:03 Consult to Cardiology Routine Consulting Provider: [facility] Reason for consultation: syncope, symptomatic bradycardia DS: Diagnosis Discharge Diagnosis (1) Symptomatic bradycardia: Status: Acute (2) Unresponsive: Status: Acute DS: Summary Hospital Course Hospital Course: 64-year-old male with history of Alzheimer's dementia, seizure disorder, dysphagia, anxiety, pica, type 2 dm, and aphasia presented to the emergency room earlier today from the [facility] after a possible seizure. Per staff at the facility, patient had a brief episode of unresponsiveness lasting for several seconds without any notable postictal state. They felt it was similar to seizure activity. Discussed with RELIABILITY TECHNICIAN who reports the patient became rigid, not responsive to voice or sternal rub. He became more alert and moving extremities but still was not following commands and did not appear attentive which is different from baseline- at baseline pt is alert and ambulatory and able to follow simple commands though not very communicative. On exam, patient is awake and alert, mostly nonverbal though apparently told the aid he was hungry. On arrival, vss. However, developed a 4.5s pause noted on tele monitor with hr 20- 30, currenlty in 70s in NSR. No known cardiac history. Labs unremarkable. Negative for COVID, flu, RSV. CXR negative for any acute cardiopulmonary abnormality. Head CT negative for any acute intracranial abnormality. EKG shows NSR, rate 81, no ST/T-wave abnormalities or significant AV beatriz blocks. Pacer pads in place but patient is not actively being paced. Hospital Course Admitted to telemetry where was known to be bradycardic. Seen in consultation by Cardiology and after discussing with patient's the decision was made to do an implantable loop recorder. On 07/10/2024 he underwent placement of loop recorder without issue. Medically he is stable for returned to s Home. This has been cleared by Cardiology. This is 's preference as patient is able to ambulate freely in locked unit. He will be discharged back to [facility]. Time Attestation Discharge Coordination Time (in mins): 35 Quality: Safe Use of Opioids Does Pt have an Active Cancer Diagnosis on the Problem List?: No Quality: Stroke Does the patient have a stroke diagnosis?: No Physical Exam Vital Signs: Vital Signs: Last Vital Signs Temp 97.8 F 07/10/24 12:00 Pulse 100 07/10/24 12:00 Resp 19 07/10/24 12:00 BP 127/77 07/10/24 12:00 Pulse Ox 97 07/10/24 12:00 O2 Del Method Room Air 07/10/24 12:00 O2 Flow Rate 2 07/09/24 21:23 BMI result Body Mass Index 28.2 Const: Other: Awake alert nonverbal Resp: Other: Clear to auscultation bilaterally no rales rhonchi or wheezes Cardio: Other: No S4; positive S1-S2; no S3 murmurs rubs or gallops GI: Other: Soft nontender nondistended normoactive bowel sounds Extrem: Other: No edema bilaterally DS: Data Data Completed and Pending Labs on day of discharge: Laboratory Results - last 24 hr 07/09/24 07/09/24 07/10/24 15:33 20:41 07:49 POC Glucose 129 H 174 H 144 H 07/10/24 12:02 POC Glucose 138 H Discharge Plan Discharge Patient Disposition: Xfer LTC Discharge Diagnosis: Symptomatic bradycardia Referrals: Oracio Irizarry MD [Primary Care Provider] - 1 Week Discharge Medications: Continued metformin 500 mg Tablet 500 mg PO BID acetaminophen 325 mg Tablet 325 mg PO Q4H PRN (Reason: pain or fever) Rx Instructions: not to exceed 3 gms in 24 hours tamsulosin 0.4 mg Capsule 0.4 mg PO BEDTIME divalproex 125 mg Tablet,Delayed Release (Dr/Ec) 375 mg PO BID gabapentin 100 mg Capsule 100 mg PO Q8H PRN (Reason: anxiety/agitation) gabapentin 100 mg Capsule 100 mg PO BID glipizide 5 mg Tablet 5 mg PO DAILY bisacodyl 5 mg Tablet 5 mg PO BEDTIME PRN (Reason: Constipation) chlorhexidine gluconate 0.12 % Mouthwash 15 ml BUCCAL BEDTIME Rx Instructions: swab on teeth and gum followed by swish with water Discharge Orders: Discharge Order (Routine); Ordered 07/10/24 Ordered By: Alberto Paulino Diet: Advance to usual diet Activity on Discharge: As tolerated Stand Alone Forms: Patient Portal Discharge page Print Language: Uzbek Care Plan Goals: Resume all medications as taken previous to hospital Health Concerns: Resume all treatments as previously Plan of Treatment: Dressing as per Cardiology to I LD site Assessment: See discharge summary
--- NOTE | 2024-07-10 15:20 | HO.PM.IMPN ---
Subjective Subjective Date of Service: 07/10/24 Interval History: No acute issues overnight. Awaiting I LD Review of Systems Unable to obtain Physical Exam Vital Signs: Vital Signs: Last Vital Signs Temp 97.8 F 07/10/24 12:00 Pulse 100 07/10/24 12:00 Resp 19 07/10/24 12:00 BP 127/77 07/10/24 12:00 Pulse Ox 97 07/10/24 12:00 O2 Del Method Room Air 07/10/24 12:00 O2 Flow Rate 2 07/09/24 21:23 BMI result Body Mass Index 28.2 Const: Other: Awake alert nonverbal Resp: Other: Clear to auscultation bilaterally no rales rhonchi or wheezes Cardio: Other: No S4; positive S1-S2; no S3 murmurs rubs or gallops GI: Other: Soft nontender nondistended normoactive bowel sounds Extrem: Other: No edema bilaterally Objective Data Active Medications Acetaminophen (Acetaminophen 325 Mg Tablet) 650 mg PO Q6H PRN PRN Reason: Pain, Mild (Pain Scale 1-3), fever or headache Bisacodyl (Bisacodyl 5 Mg Tablet.Dr) 5 mg PO BEDTIME PRN PRN Reason: Constipation Calcium Carbonate (Calcium Carbonate 750 Mg Tab.Chew) 750 mg PO Q4H PRN PRN Reason: Heartburn Chlorhexidine Gluconate (Chlorhexidine Gluc Oral Rinse 15 Ml Mouthwash) 15 ml BUCCAL BEDTIME [facility] Last Admin: 07/09/24 20:36 Dose: 15 ml Documented By: TIFFANIE Divalproex Sodium (Divalproex Sodium Sprinkles 125 Mg ) 375 mg PO BID [facility] Last Admin: 07/10/24 08:08 Dose: 375 mg Documented By: BRIJESH Gabapentin (Gabapentin 100 Mg Capsule) 100 mg PO BID [facility] Last Admin: 07/10/24 08:08 Dose: 100 mg Documented By: BRIJESH Gabapentin (Gabapentin 100 Mg Capsule) 100 mg PO Q8H PRN PRN Reason: anxiety/agitation Glucose (Glucose Gel 15 Gm Gel..Gram.) 15 gm PO Q15M PRN; Protocol PRN Reason: per Hypoglycemia Standing Ord. Dextrose (D10) 250 mls @ 750 mls/hr IV Q15M PRN; Protocol PRN Reason: per Hypoglycemia Standing Ord. Insulin Human Lispro (Insulin Lispro 100 Unit/Ml 3 Ml Vial) 0 unit SUBCUT QIDACHS [facility]; Protocol Last Admin: 07/10/24 12:01 Dose: Not Given Documented By: BRIJESH Non-Admin Reason: NPO Magnesium Hydroxide (Milk Of Magnesia 30 Ml Oral.Susp) 30 ml PO DAILY PRN PRN Reason: Constipation Melatonin (Melatonin 3 Mg Tablet) 6 mg PO BEDTIME PRN PRN Reason: Insomnia Sodium Chloride (0.9 % Sodium Chloride Flush 3 Ml Syringe) 3 ml IVFLUSH QSHIFT [facility] Last Admin: 07/10/24 15:03 Dose: 3 ml Documented By: BRIJESH Tamsulosin HCl (Tamsulosin Hcl 0.4 Mg Capsule) 0.4 mg PO BEDTIME [facility] Last Admin: 07/09/24 20:45 Dose: 0.4 mg Documented By: SHAYANOWLEON Labs 07/09/24 07:13 07/09/24 07:13 Labs: Laboratory Results - last 24 hr 07/09/24 07/09/24 07/10/24 15:33 20:41 07:49 POC Glucose 129 H 174 H 144 H 07/10/24 12:02 POC Glucose 138 H Assessment and Plan (1) Symptomatic bradycardia: Status: Acute Plan 64-year-old male with history of Alzheimer's dementia, seizure disorder, dysphagia, anxiety, pica, type 2 dm, and aphasia admitted for unresponsiveness suspected to be related to symptomatic bradycardia 1. Symptomatic bradycardia -NPO after midnight for ILD placement -keep pacer pads on -monitor on telemetry 2.Eca-gfomqky-erncfbmow type 2 diabetes -acceptable control on current therapies -lispro correctional scale -adjust as indicated 3.Alzheimer's dementia -stable and well compensated 4.Unspecified seizure disorder -continue Depakote dnr/dni per luis manuel Tanner HCP- , Rob Requires ongoing hospitalization for monitoring for symptomatic bradycardia in anticipation of loop recorder in a.m. Quality Stroke Does the patient have a stroke diagnosis?: No VTE Prior VTE?: No VTE Risk Level:: Medical - moderate - high VTE Device Contraindication: N/A - Device Ordered VTE Drug Contraindication: Treatment Not Indicated
--- NOTE | 2024-07-10 15:54 | PM.OP ---
Brief Operative Note Date of Service: 07/10/24 Pre-op diagnosis: Unresponsive episode with bradycardia Post-op diagnosis: same Procedure: Placement of implantable loop recorder Implants: After obtaining consent from his due to his cognitive disability, patient was brought to the minor surgery suite. Patient was then laid supine in the bed. The precordial area was then prepped and draped in a sterile fashion. Patient was then given 1% lidocaine with epinephrine subcutaneously in that is pace. A small incision was then made. [employer] implantable loop recorder with serial number [id number] was then implanted using the modified Seldinger technique in the subcutaneous place. Measured R-waves at 0.7-0.8 mV. Surgeon: Srinivas Mon MD Anesthesia: local Was an Business Administration Program Chair used for this Procedure?: No Estimated blood loss (mL): 1 Pathology: none sent Condition: stable Disposition: floor
[2024-07-10 16:23] LABS: Glucose, Whole Blood 135 mg/dL (60-115)
[2024-07-10 21:52] LABS: Glucose, Whole Blood 124 mg/dL (60-115)
[2024-07-10] MEDS: Tamsulosin HCL 0.4 MG CAPSULE PO (21:53)
[2024-07-11] MEDS: 0.9 % Sodium Chloride Flush 3 ML SYRINGE IVFLUSH ×2 (00:08→09:39)
[2024-07-11 04:00] VITALS: BP 119/73; PULSE 63; RESP 20; TEMP 36.3; O2SAT 96
[2024-07-11 07:28] LABS: Glucose, Whole Blood 147 mg/dL (60-115)
[2024-07-11 08:00] VITALS: BP 107/68; PULSE 66; RESP 20; TEMP 36.4; O2SAT 95
[2024-07-11] MEDS: Divalproex Sodium Sprinkles 125 MG CAP.DR.SPR 375 MG PO (09:38)
[2024-07-11] MEDS: Gabapentin 100 MG CAPSULE PO (09:39)
--- NOTE | 2024-07-11 09:53 | MHC.CM.PN ---
Pt has been medically cleared for DC, he will return today to the [facility] via BLS.
== END 2024-07-11 11:20 | DRG 261 ==
LOC: HO.ED 11:35 → HO.EDOVER 12:21 → HO.IMC 16:19
PROVIDERS: Hospitalist; Internal Medicine Cardiovascular Disease; Physician Assistant Medical; Admitting Provider Physician Assistant; Emergency Provider Emergency Medicine; PCP Internal Medicine Interventional Cardiology; Visit Provider Physician Assistant Medical
PROC: 0JH602Z Insertion of Monitoring Device into Chest Subcutaneous Tissue and Fascia, Open Approach (ICD-10-PCS; CPT 33285; principal; 2024-07-10 14:40)
DX: I49.5 Sick sinus syndrome (principal); R47.01 Aphasia; E11.42 Type 2 diabetes mellitus with diabetic polyneuropathy; Z66 Do not resuscitate; G30.0 Alzheimer's disease with early onset; N40.0 Benign prostatic hyperplasia without lower urinary tract symptoms; F02.80 Dementia in other diseases classified elsewhere, unspecified severity, without behavioral disturbance, psychotic disturbance, mood disturbance, and anxiety; G40.909 Epilepsy, unspecified, not intractable, without status epilepticus; Z20.822 Contact with and (suspected) exposure to COVID-19; Z79.84 Long term (current) use of oral hypoglycemic drugs; Z79.899 Other long term (current) drug therapy
CPT/HCPCS: 0241U; 36415; 70450; 71045; 80048; 80053; 82550; 82947; 83735; 84443; 85025; 93005; 99285; C1764; J7120

== ENCOUNTER → 2024-07-08 12:03 | Outpatient (BNV) | payer MEDICARE, SELFPAY | PROVIDERS: Admitting Provider Physician Assistant; Emergency Provider Emergency Medicine; PCP Internal Medicine Interventional Cardiology; Visit Provider Physician Assistant | DX: R46.4 Slowness and poor responsiveness (principal); R00.1 Bradycardia, unspecified | CPT/HCPCS: 99223; 99232; 99233; 99239 ==

== ENCOUNTER → 2024-07-08 12:03 | Outpatient (BNV) | payer OTHER, SELFPAY | PROVIDERS: Admitting Provider Physician Assistant; Emergency Provider Emergency Medicine; PCP Internal Medicine Interventional Cardiology; Visit Provider Internal Medicine Cardiovascular Disease | DX: R46.4 Slowness and poor responsiveness (principal) | CPT/HCPCS: 33285; 99222; 99233 ==

== ENCOUNTER → 2024-08-22 23:59 | Outpatient (BNV) | payer OTHER, SELFPAY ==
--- NOTE | 2024-08-27 10:47 | MHC.OFFVIS ---
Intake Visit Reasons: Remote Device ck-Shaw Allergies codeine Allergy (Verified 07/08/24 09:52) Unknown Penicillins Allergy (Verified 07/08/24 09:52) Unknown [facility] Medical History Pica BPH (benign prostatic hyperplasia) Diabetic polyneuropathy Type 2 diabetes mellitus Seizure disorder Alzheimer's dementia Social History Household Members: Other Unable to assess alcohol history related to: Unknown Patient Tobacco Use Status: Never used Tobacco Use of substances other than those prescribed or required for medical reasons: Unable to respond Currently Displaying Signs/Symptoms of Drug Intoxication Withdrawal: No Advance Directives: Yes Advance Directives on File: Yes Advance Directives Date on File: 07/08/24 Do you have a plan to hurt others: No Plan Nutrition Risks: No Nutritional Risk service: Yes Office Procedures Cardiac Device Check Cardiac Device Check Details: Remote implantable loop recorder report generated 08/22/2024. No arrhythmias or pauses noted [id number] Cardiac Interrogation, subcut cardiac rhythm monitor Procedure code (CPT) selection complete Assessment & Plan Assessment & Plan (1) Symptomatic bradycardia: Code(s): R00.1 - Bradycardia, unspecified Category: Medical Plan: See above Coding Level of Care Code Procedure Only Diagnoses Symptomatic bradycardia R00.1 CPT Codes Cardiac Device Check - Cardiac Device 16: [id number] Cardiac Interrogation, subcut cardiac rhythm monitor ([id number])
== END ==
PROVIDERS: PCP Internal Medicine Interventional Cardiology; Visit Provider Internal Medicine Cardiovascular Disease
DX: R00.1 Bradycardia, unspecified (principal); Z95.818 Presence of other cardiac implants and grafts
CPT/HCPCS: 93298

== ENCOUNTER 2024-09-02 07:25 | Outpatient (REF) | payer MEDICARE, SELFPAY ==
[2024-09-02 08:08] LABS: Valproate 16.8 mcg/mL (50.0-100.0)
[2024-09-02 08:10] LABS: Anion Gap 12 (12-20); Blood Urea Nitrogen 12 mg/dL (9-16); Calcium 9.3 mg/dL (8.4-10.2); Carbon Dioxide 25 mmol/L (22-29); Chloride 107 mmol/L (96-108); Estimated Glomerular Filt Rate > 60; Glucose Random 143 mg/dL (60-115); Magnesium 1.9 mg/dL (1.6-2.6); Potassium 4.1 mmol/L (3.3-5.1); Sodium 140 mmol/L (135-145)
== END 2024-09-02 07:26 | disposition home or self-care (01) ==
LOC: HO.HSH2N 07:25
PROVIDERS: Visit Provider Internal Medicine Interventional Cardiology
DX: G40.909 Epilepsy, unspecified, not intractable, without status epilepticus (principal); Z79.899 Other long term (current) drug therapy
CPT/HCPCS: 36415; 80048; 80164; 83735

== ENCOUNTER → 2024-09-17 23:59 | Outpatient (BNV) | payer MEDICARE, SELFPAY ==
--- NOTE | 2024-09-18 10:34 | MHC.OFFVIS ---
Intake Visit Reasons: REmote ILR check- [facility] Allergies codeine Allergy (Verified 07/08/24 09:52) Unknown Penicillins Allergy (Verified 07/08/24 09:52) Unknown [facility] Medical History Pica BPH (benign prostatic hyperplasia) Diabetic polyneuropathy Type 2 diabetes mellitus Seizure disorder Alzheimer's dementia Social History Household Members: Other Unable to assess alcohol history related to: Unknown Patient Tobacco Use Status: Never used Tobacco Advance Directives Date on File: 07/08/24 service: Yes Office Procedures Cardiac Device Check Cardiac Device Check Details: Remote implantable loop recorder report generated 09/17/2024. No arrhythmias or pauses noted [id number] Cardiac Interrogation, subcut cardiac rhythm monitor Procedure code (CPT) selection complete Assessment & Plan Assessment & Plan (1) Symptomatic bradycardia: Code(s): R00.1 - Bradycardia, unspecified Category: Medical Plan: See above Coding Level of Care Code Procedure Only Diagnoses Symptomatic bradycardia R00.1 CPT Codes Cardiac Device Check - Cardiac Device 16: [id number] Cardiac Interrogation, subcut cardiac rhythm monitor ([id number])
== END ==
PROVIDERS: PCP Internal Medicine Interventional Cardiology; Visit Provider Internal Medicine Cardiovascular Disease
DX: R00.1 Bradycardia, unspecified (principal); Z95.818 Presence of other cardiac implants and grafts
CPT/HCPCS: 93298

== ENCOUNTER 2024-10-01 10:01 | Emergency (ER) | payer OTHER, SELFPAY ==
--- NOTE | ~2024-10-01 | XR_ITS ---
EXAMINATION: XR CHEST CLINICAL INFORMATION: CHEST PAIN COMPARISON: 07/08/2024 TECHNIQUE: Frontal view of the chest was obtained. FINDINGS: Slight elevation of the right hemidiaphragm continues. Lungs grossly clear. Heart and pulmonary vessels normal. XR/XR chest 1V IMPRESSION: No active disease. Electronically signed by: Sourav Richardson MD 10/01/2024 12:35 PM [facility]
--- NOTE | 2024-10-01 10:12 | ECG_ITS ---
Test Reason : 20 SECOND PAUSES Blood Pressure : / mmHG Vent. Rate : 077 BPM Atrial Rate : 077 BPM P-R Int : 164 ms QRS Dur : 096 ms QT Int : 352 ms P-R-T Axes : 031 038 081 degrees QTc Int : 398 ms Normal sinus rhythm Nonspecific T wave abnormality Abnormal ECG When compared with ECG of 08-JUL-2024 10:05, Nonspecific T wave abnormality now evident in Anterior leads Referred By: Freddy Ely Electronically Signed By:SURYA KINGSLEY MD
--- NOTE | 2024-10-01 10:14 | ED.GENADULT ---
HPI - General Adult General Chief complaint: General Medical Stated complaint: 19 SECOND PAUSE ON MONITOR @ [facility] PER EMS Time Seen by Provider: 10/01/24 10:12 Source: EMS Mode of arrival: EMS Limitations: other (DEMENTIA) History of Present Illness HPI narrative: THIS IS A PENITENTIARY PATIENT WHO IS DEPENDENT FOR ALL THE ADLS NO VERBAL SENT BY PENITENTIARY BECAUSE HE HAD AN OUTPATIENT HOLTER WHICH SHOWED 19 SECONDS PAUSE. THE PATIENT IS UNABLE TO GIVE ANY HISTORY. HE HAS HISTORY OF DEMENTIA WITH BEHAVIORAL DISTURBANCES HE HAS A HISTORY OF SEIZURE DISORDER. Onset (ago): day(s) (1) Radiation: non-radiation Severity: moderate Exacerbating factors: none Associated symptoms: denies other symptoms Treatments prior to arrival: none Related Data Home Medications ?Medication ?Instructions ?Recorded ?Confirmed acetaminophen 325 mg tablet 325 mg PO Q4H PRN pain or fever 07/08/24 10/01/24 bisacodyl 5 mg tablet 5 mg PO BEDTIME PRN Constipation 07/08/24 10/01/24 chlorhexidine gluconate 0.12 % 15 ml buccal BEDTIME 07/08/24 10/01/24 mouthwash divalproex 125 mg tablet,delayed 750 mg PO BID 07/08/24 10/01/24 release gabapentin 100 mg capsule 100 mg PO BID 07/08/24 10/01/24 gabapentin 100 mg capsule 100 mg PO Q8H PRN anxiety/agitation 07/08/24 10/01/24 glipizide 5 mg tablet 5 mg PO DAILY 07/08/24 10/01/24 metformin 500 mg tablet 500 mg PO BID 07/08/24 10/01/24 tamsulosin 0.4 mg capsule 0.4 mg PO BEDTIME 07/08/24 10/01/24 midazolam 5 mg/spray (0.1 mL) 5 mg intranasal DIRECTED PRN 10/01/24 10/01/24 nasal spray acute repetitive seizures polyethylene glycol 3350 17 17 g PO DAILY 10/01/24 10/01/24 gram/dose oral powder Allergies Allergy/AdvReac Type Severity Reaction Status Date / Time codeine Allergy Unknown Verified 10/01/24 10:16 Penicillins Allergy Unknown Verified 10/01/24 10:16 Review of Systems Review of Systems: Yes Unobtainable due to mental condition and Unobtainable due to mental status PMFSH Past Medical History Medical History Pica BPH (benign prostatic hyperplasia) Diabetic polyneuropathy Type 2 diabetes mellitus Seizure disorder Alzheimer's dementia Social History Social History Household Members: Other Unable to assess alcohol history related to: Unable to respond Patient Tobacco Use Status: Never used Tobacco Advance Directives: Yes Advance Directives on File: Yes Advance Directives Date on File: 07/08/24 Do you have a plan to hurt others: No Plan service: Yes Physical Exam ED Vital Signs: Vital Signs - 24 hr 10/01/24 10:16 10/01/24 12:00 10/01/24 14:00 Temperature 98.0 F 98.2 F 98.0 F Pulse Rate 77 72 77 Respiratory Rate 18 15 15 Blood Pressure 112/76 110/62 Pulse Oximetry 98 100 100 Oxygen Delivery Method Room Air Room Air Room Air BMI result Body Mass Index 24.2 HE LOOKS WELL IS NOT TOXIC-APPEARING Const General: cooperative, comfortable and no acute distress Nutritional Appearance: well nourished HENCA Head: Yes normal to inspection General nose exam: Normal external nose present Mouth: Normal oral and palatal mucosa present Neck Neck: Yes normal visual inspection Resp Effort & Inspection: normal respiratory effort Auscultation: clear to auscultation bilaterally Cardio Rate: regular rate Rhythm: regular rhythm GI Inspection: Yes normal to inspection Palpation (GI): Soft to palpation, not firm and nontender Auscultation: normal bowel sounds Skin General skin exam: no rashes or lesions noted Lesions: no lesions Rashes: no rashes Neuro Other: NONVERBAL MOVES ALL THE EXTREMITIES Course Reevaluation(s) Reevaluation #1: I DISCUSSED THE CASE WITH THE CARDIOLOGY PATIENT WILL NEED PACEMAKER PLAN ADMISSION NPO, DR. KINGSLEY WILL CONTACT GENETIC PHYSICIAN Time: 12:30 Reevaluation #2: I WAS TOLD NOW THAT PT NEED TO BE TRANSFERRED TO [facility] SPOKE WITH UNLOADING CHECKER DR DEVRIES ,HOSPITALIST WILL CALL FOR ACCEPTANCE Time: 13:35 Reevaluation #3: ACCEPTED AT [facility] WAITING FOR BED Time: 14:11 Medical Decision Making Medical Decision Making MDM Narrative: PATIENT PRESENTED WITH A CHIEF COMPLAINT OF BRADYCARDIA, WITH 19 SECONDS PAUSE, WE WILL GET EKG LABS Differential Diagnosis Differential Diagnoses: The differential diagnosis associated with the presentation includes HYPOKALEMIA, HEART BLOCK, BRADYCARDIA Admission/Observation Consideration of admission/observation: Escalation of care including admission/observation considered Consult Healthcare Provider Management of the patient was discussed with: Hospitalist and Tariff Counsel DR WILLIS Lab Data MDM Lab Attestation statement: I reviewed the patient's lab results. 10/01/24 10:30 10/01/24 10:30 Labs: Lab Results 10/01/24 Range/Units 10:30 WBC 6.3 (4.8-10.8) X10*3/uL RBC 4.66 (4.60-5.80) X10*6/uL Hgb 14.8 (14.0-18.0) g/dl Hct 43.2 (42.0-52.0) % MCV 92.7 (80.0-98.0) fL MCH 31.8 (27.0-33.0) pg MCHC 34.3 (31.0-36.0) g/dl RDW 12.9 (11.0-16.0) % Plt Count 154 L (160-400) X10*3/uL MPV 9.3 L (9.4-12.4) fL Immature Gran % (Auto) 0.3 (0.0-0.4) % Neut % (Auto) 67.4 (45-73) % Lymph % (Auto) 23.8 (20-40) % [place] % (Auto) 7.1 (2-11) % Eos % (Auto) 0.8 (0-4) % Baso % (Auto) 0.6 (0-2) % Lymph # (Auto) 1.5 (1.2-4.9) X10*3/uL [place] # (Auto) 0.5 (0.1-1.2) X10*3/uL Eos # (Auto) 0.1 (0.0-0.4) X10*3/uL Baso # (Auto) 0.0 (0.0-0.2) X10*3/uL Abs Immat Gran (auto) 0.02 (0.00-0.03) X10*3/uL Absolute Neuts (auto) 4.2 (2.0-8.3) x10*3/uL Absolute Nucleated RBC 0.000 (0.0-0.012) X10*3/uL Nucleated RBC % (auto) 0.0 (0.0-0.2) /100WBC PT 11.3 (10.9-12.4) SEC INR 1.0 (0.9-1.1) APTT 31.1 (26.0-36.8) SEC Sodium 139 (135-145) mmol/L Potassium 4.4 (3.3-5.1) mmol/L Chloride 104 (96-108) mmol/L Carbon Dioxide 28 (22-29) mmol/L Anion Gap 11 L (12-20) BUN 12 (9-16) mg/dL Creatinine 0.88 (0.5-1.4) mg/dL Estim Creat Clear Calc 74.5 Estimated GFR > 60 Random Glucose 168 H (60-115) mg/dL Calcium 8.7 D (8.4-10.2) mg/dL Total Bilirubin 0.4 (0.0-1.0) mg/dL AST 18 (5-37) U/L ALT 12 (0-40) U/L Alkaline Phosphatase 69 (39-117) U/L Troponin I High Sens < 2.7 (<3.5-35.0) ng/L Total Protein 7.4 (6.5-8.0) g/dL Albumin 4.1 (3.5-5.0) g/dL Independent Interpretation I performed an independent interpretation of an: EKG Interpretation: SINUS RHYTHM RATE [address]-T CHANGES Independent Historian Clinical information obtained from an independent historian. History obtained from or confirmed by: EMS PENITENTIARY RECORD External Record Review External record reviewed: Outpatient record Chronic Conditions DEMENTIA Critical Care Time Critical Care Time Critical Care Time: Yes Total Critical Care Time: 60 Attestation: TAKING CARE OF THE PT ARRANGING TRANSFER TO [facility] Discharge Plan Discharge Clinical Impression: Symptomatic bradycardia Patient Disposition: Xfer Acute Care Hospital Transfer Details: [facility] Prescriptions: No Action metformin 500 mg Tablet 500 mg PO BID acetaminophen 325 mg Tablet 325 mg PO Q4H PRN (Reason: pain or fever) Rx Instructions: not to exceed 3 gms in 24 hours tamsulosin 0.4 mg Capsule 0.4 mg PO BEDTIME divalproex 125 mg Tablet,Delayed Release (Dr/Ec) 750 mg PO BID gabapentin 100 mg Capsule 100 mg PO Q8H PRN (Reason: anxiety/agitation) gabapentin 100 mg Capsule 100 mg PO BID glipizide 5 mg Tablet 5 mg PO DAILY bisacodyl 5 mg Tablet 5 mg PO BEDTIME PRN (Reason: Constipation) chlorhexidine gluconate 0.12 % Mouthwash 15 ml BUCCAL BEDTIME Rx Instructions: swab on teeth and gum followed by swish with water polyethylene glycol 3350 17 gram/dose Powder 17 g PO DAILY midazolam 5 mg/spray (0.1 mL) Mullin,Non-Aerosol 5 mg INTRANASAL DIRECTED PRN (Reason: acute repetitive seizures) Print Language: Qatari
[2024-10-01 10:16] VITALS: PULSE 77; RESP 18; TEMP 36.7; O2SAT 98; BMI 24.2
[2024-10-01 10:34] LABS: MANUAL DIFF FLAG NO
[2024-10-01 10:37] LABS: Basophils Percent Auto 0.6 % (0-2); Eosinophils Absolute Auto 0.1 X10*3/uL (0.0-0.4); Eosinophils Percent Auto 0.8 % (0-4); Hematocrit 43.2 % (42.0-52.0); Hemoglobin 14.8 g/dl (14.0-18.0); Imm Gran Abs Auto 0.02 X10*3/uL (0.00-0.03); Imm Gran Pct Auto 0.3 % (0.0-0.4); Lymphocytes Absolute Auto 1.5 X10*3/uL (1.2-4.9); Lymphocytes Percent Auto 23.8 % (20-40); Mean Corpuscular HGB Conc 34.3 g/dl (31.0-36.0); Mean Corpuscular Hemoglobin 31.8 pg (27.0-33.0); Mean Corpuscular Volume 92.7 fL (80.0-98.0); Mean Platelet Volume 9.3 fL (9.4-12.4); Monocytes Absolute Auto 0.5 X10*3/uL (0.1-1.2); Monocytes Percent Auto 7.1 % (2-11); Neutrophils Absolute Auto 4.2 x10*3/uL (2.0-8.3); Neutrophils Percent Auto 67.4 % (45-73); Platelet Count 154 X10*3/uL (160-400); Red Blood Count 4.66 X10*6/uL (4.60-5.80); Red Cell Distribution Width 12.9 % (11.0-16.0); White Blood Count 6.3 X10*3/uL (4.8-10.8)
[2024-10-01 10:44] LABS: Prothrombin Time 11.3 SEC (10.9-12.4)
[2024-10-01 10:46] LABS: Partial Thromboplastin Time 31.1 SEC (26.0-36.8)
[2024-10-01 11:03] LABS: Alanine Aminotransferase 12 U/L (0-40); Albumin Level 4.1 g/dL (3.5-5.0); Alkaline Phosphatase 69 U/L (39-117); Anion Gap 11 (12-20); Aspartate Amino Transferase 18 U/L (5-37); Bilirubin Total 0.4 mg/dL (0.0-1.0); Blood Urea Nitrogen 12 mg/dL (9-16); Calcium 8.7 mg/dL (8.4-10.2); Carbon Dioxide 28 mmol/L (22-29); Chloride 104 mmol/L (96-108); Creatinine Clr Calc Pharmacy 74.5; Estimated Glomerular Filt Rate > 60; Glucose Random 168 mg/dL (60-115); Potassium 4.4 mmol/L (3.3-5.1); Sodium 139 mmol/L (135-145); Total Protein 7.4 g/dL (6.5-8.0)
[2024-10-01 11:19] LABS: Troponin-I High Sensitivity < 2.7 ng/L (<3.5-35.0)
--- NOTE | 2024-10-01 11:23 | PHA.MEDREC ---
Pharmacy Consult ? Medication Reconciliation Pharmacy has completed the medication reconciliation, utilized list faxed to pharmacy although facility is not noted.
[2024-10-01 12:00] VITALS: BP 112/76; PULSE 72; RESP 15; TEMP 36.8; O2SAT 100
--- NOTE | 2024-10-01 12:58 | P.HPHOSP_ITS ---
History of Present Illness Date of Service: 10/01/24 Chief Complaint: sinus pause on outpt holter monitor The patient is a 64 year old M with advanced dementia who is non-verbal at baseline and presents to the ED after his oupatient holter monitor was noted to have what appeared to be a 19 second pause. The patients symptoms during this time are unclear and unfortunately due to this baseline dementia, he is unable to provide a meaninful history. In the ED, his EKG shows NRS without pauses at this time. His basic lab work is unchanged from baseline. His case was d/w with the on-call pressure controller by the ED team and now will be admitted for further work up and treatment. Pt seen and examined in the ED around 1245. He is non-verbal. He appears calm and without any distress. Review of Systems 2 Review of Systems: unable to review due to mental status [facility] Medical History Pica BPH (benign prostatic hyperplasia) Diabetic polyneuropathy Type 2 diabetes mellitus Seizure disorder Alzheimer's dementia Social History Household Members: Other Unable to assess alcohol history related to: Unknown Patient Tobacco Use Status: Never used Tobacco Advance Directives: Yes Advance Directives on File: Yes Advance Directives Date on File: 07/08/24 Do you have a plan to hurt others: No Plan service: Yes Meds Allergies Allergy/AdvReac Type Severity Reaction Status Date / Time codeine Allergy Unknown Verified 10/01/24 10:16 Penicillins Allergy Unknown Verified 10/01/24 10:16 Home Medications ?Medication ?Instructions ?Recorded ?Confirmed ?Last Taken ?Type acetaminophen 325 mg tablet 325 mg PO Q4H PRN pain or fever 07/08/24 10/01/24 09/30/24 07:56 History bisacodyl 5 mg tablet 5 mg PO BEDTIME PRN Constipation 07/08/24 10/01/24 09/11/24 16:31 History chlorhexidine gluconate 0.12 % 15 ml buccal BEDTIME 07/08/24 10/01/24 09/30/24 20:41 History mouthwash divalproex 125 mg tablet,delayed 750 mg PO BID 07/08/24 10/01/24 09/30/24 20:41 History release gabapentin 100 mg capsule 100 mg PO BID 07/08/24 10/01/24 09/30/24 20:41 History gabapentin 100 mg capsule 100 mg PO Q8H PRN anxiety/agitation 07/08/24 10/01/24 Unknown History glipizide 5 mg tablet 5 mg PO DAILY 07/08/24 10/01/24 09/30/24 08:03 History metformin 500 mg tablet 500 mg PO BID 07/08/24 10/01/24 09/30/24 16:36 History tamsulosin 0.4 mg capsule 0.4 mg PO BEDTIME 07/08/24 10/01/24 09/30/24 16:36 History midazolam 5 mg/spray (0.1 mL) 5 mg intranasal DIRECTED PRN 10/01/24 10/01/24 Unknown History nasal spray acute repetitive seizures polyethylene glycol 3350 17 17 g PO DAILY 10/01/24 10/01/24 09/30/24 08:03 History gram/dose oral powder Physical Exam 2 Vital Signs and Narrative: Vital Signs: Last Vital Signs Temp 98.0 F 10/01/24 10:16 Pulse 77 10/01/24 10:16 Resp 18 10/01/24 10:16 Pulse Ox 98 10/01/24 10:16 O2 Del Method Room Air 10/01/24 10:16 BMI result Body Mass Index 24.2 Const: Other: Constitutional - Awake and Alert, No apparent distress Eyes - PERRLA, EOMI Cardiovascular - S1S2, RRR, No edema Respiratory - Normal lung expansion, Normal respiratory effort, No respiratory distress, CTA bilaterally Gastrointestinal - NT / ND; +BS; No rebound or guarding - No CVA tenderness Extremities - no calf tenderness bilaterally, no swelling Musculoskeletal - Normal inspection, normal ROM Skin - Warm/Dry Neurological - moving all 4 limbs, no obvious facial assymetry Psychological - Appropriate affect Results Labs 10/01/24 10:30 10/01/24 10:30 Labs: Laboratory Results - last 24 hr 10/01/24 10:30 MCV 92.7 MCH 31.8 MCHC 34.3 RDW 12.9 Plt Count 154 L MPV 9.3 L Immature Gran % (Auto) 0.3 Neut % (Auto) 67.4 Lymph % (Auto) 23.8 [place] % (Auto) 7.1 Eos % (Auto) 0.8 Baso % (Auto) 0.6 Lymph # (Auto) 1.5 [place] # (Auto) 0.5 Eos # (Auto) 0.1 Baso # (Auto) 0.0 Abs Immat Gran (auto) 0.02 Absolute Neuts (auto) 4.2 Absolute Nucleated RBC 0.000 Nucleated RBC % (auto) 0.0 PT 11.3 INR 1.0 APTT 31.1 Anion Gap 11 L Estim Creat Clear Calc 74.5 Estimated GFR > 60 Random Glucose 168 H Calcium 8.7 D Total Bilirubin 0.4 AST 18 ALT 12 Alkaline Phosphatase 69 Troponin I High Sens < 2.7 Total Protein 7.4 Albumin 4.1 Imaging Radiologist's Impressions: Impressions Chest X-Ray 10/01/24 10:30 IMPRESSION: No active disease. Electronically signed by: Sourav Richardson MD 10/01/2024 12:35 PM [facility] Quality VTE VTE Risk Level:: Medical - moderate - high VTE Device Contraindication: N/A - Device Ordered VTE Drug Contraindication: Treatment Not Indicated
--- NOTE | 2024-10-01 13:09 | PM.EVENT ---
Event Note Date of Service: 10/01/24 Event Note: Plan was for admission, unable to complete PPM here and hence will require transfer. admission will be cancelled. Pt will be transferred from the ED. Time Spent With Patient Time: Total time managing care of this patient today ____ minutes.
[2024-10-01 14:00] VITALS: BP 110/62; PULSE 77; RESP 15; TEMP 36.7; O2SAT 100
[2024-10-01 15:31] VITALS: BP 110/62; PULSE 77; RESP 18; TEMP 36.7; O2SAT 100
--- OUTSIDE RECORDS SUMMARY | 2024-10-02 19:55 | XMS_ITS | Encounter Summary ---
Author Name [facility] [place] Organization [facility] [place] Address [address] [place] [id number] Care Team Providers Care Medicine Tech Name Role Phone KANDY LINDER Primary Care Provider RACHEAL Turner Primary Care Provide r Unavailable Selected Encounter This section includes the information on record at [place] for the Encounter. Date/Time Encounter Type Encounter Description Reason Pro vider Source Jul 09, 2024 11:27 AM Outpatient Encounter TELEPHONE CASE MANAGEMENT IHE Encounter Template Text not used by [place] Social History: Smoking Status (Most current) and Tobacco Use (All prior to encounter date) This section includes the most current, and the historical, smoking and tobacco- related health factors from the [place] facility where the Encounter took place. Current Smoking Status This section includes the most current smoking, or tobacco-related health factor, from the [place] facility where the Encounter took place. Date/Time Current Smoking Status Comment Facil ity Feb 15, 2021 02:29 PM VA-TOBACCO USER SOME DAYS [facility] Tobacco Use History This section includes a history of the smoking, or tobacco-related health factors, that were collected on or before the date of the Encounter. The data comes from the [place] facility where the Encounter took place. Date/Time Smoking Status/Tobacco Use Comment F acility Feb 15, 2021 02:29 PM VA-TOBACCO USE 30 YEARS OR MORE [facility] Feb 15, 2021 02:29 PM VA-TOBACCO USE ADVICE [facility] [place] [facility] Feb 15, 2021 02:29 PM VA-TOBACCO USE RN EMPLOYEE HEALTH NO [facility] [place] [facility] Feb 15, 2021 02:29 PM VA-TOBACCO USE MED NO [facility] [place] [facility] Feb 15, 2021 02:29 PM VA-TOBACCO USER SOME DAYS [facility] [place] [facility] Jul 08, 2009 04:12 PM QUIT TOBACCO USE IN PAST YEAR [place] [facility] [place] [facility] May 13, 2003 03:50 PM CURRENT SMOKER [facility] Encounter Notes: All associated encounter notes This section contains the clinical notes associated to the Encounter. Date/Time Encounter Note(s) Provider Source Jul 09, 2024 11:27 AM TRANSFER SUMMARIZATION NOTE: LOCAL TITLE: [facility]/OCC/HOSPITAL NOTIFICATION NOTE STANDARD TITLE: TRANSFER SUMMARIZATION NOTE DATE OF NOTE: JUL 09, 2024@11:27 ENTRY DATE: JUL 09, 2024@11:27:32 AUTHOR: JEFF ROBERT EXP COSIGNER: URGENCY: STATUS: COMPLETED F: Hospital stay D/A: Case lenny Spangler from [facility] called because she wasnt sure if we were aware of the veterans hospitalization. She states he was admitted on 07/08/2024 for seizures. She states he has been medically cleared and will return to [facility]. She was thanked for the update and told that we would not be providing transportation to return to the [facility]. She states she will use his Medicare. She states no services are needed at this time. R: As above. /francia/ JEFF ROBERT Registered Nurse Signed: 07/09/2024 11:30 JEFF ROBERT [place] [facility]
--- OUTSIDE RECORDS SUMMARY | 2024-10-02 19:56 | XMS_ITS | Encounter Summary ---
Author Name [facility] of [facility] [place] Organization [facility] [place] Address [address] [place] [address] Care Team Providers Care It Communications Specialist Name Role Phone KANDY LINDER Primary Care Provider RACHEAL Turner Primary Care Provide r Unavailable Selected Encounter This section includes the information on record at [place] for the Encounter. Date/Time Encounter Type Encounter Description Reason Pro vider Source Oct 02, 2024 10:53 AM Outpatient Encounter TELEPHONE CASE MANAGEMENT IHE Encounter Template Text not used by [place] Social History: Smoking Status (Most current) and Tobacco Use (All prior to encounter date) This section includes the most current, and the historical, smoking and tobacco- related health factors from the [place] facility where the Encounter took place. Current Smoking Status This section includes the most current smoking, or tobacco-related health factor, from the [place] facility where the Encounter took place. Date/Time Current Smoking Status Comment Facil ity Feb 15, 2021 02:29 PM VA-TOBACCO USER SOME DAYS [facility] Tobacco Use History This section includes a history of the smoking, or tobacco-related health factors, that were collected on or before the date of the Encounter. The data comes from the [place] facility where the Encounter took place. 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 Date/Time Encounter Note(s) Provider Source Oct 02, 2024 10:53 AM NONVA NOTE: LOCAL TITLE: COMMUNITY CARE-CATHI SELF PRESENTING CARE COORD PLAN STANDARD TITLE: NONVA NOTE DATE OF NOTE: OCT 02, 2024@10:53 ENTRY DATE: OCT 02, 2024@10:53:24 AUTHOR: JUANITA HASSAN EXP COSIGNER: URGENCY: STATUS: COMPLETED COMMUNITY CARE-CATHI SELF PRESENTING CARE COORD PLAN NOTE Has ADDENDA Transfer Transfer to other [facility] Higher level of care Facility Name: [facility] Address: City: [place] State: [place] Facility POC: CIS POC Phone: TC office recieved fax from [facility] case management department regarding ER presentation on 10/01/24 for pause on telemetry. [facility] transferred to [facility] 10/01/24 and he is in PCU awaiting pacemaker placement. /larry IBARRA,RN,[facility] TRANSFER/TRAVELING COORDINATOR Signed: 10/02/2024 10:55 Receipt Acknowledged By: * AWAITING SIGNATURE * ROSEDEMARIO 10/02/2024 ADDENDUM STATUS: COMPLETED call from Elicia, rifle case repairer at [facility]. She said had his pacemaker placed today and will likely be ready to discharge tomorrow. He will need ambulance transport back to the 's home via stretcher. Notified Elicia that the [facility] is administratively eligible. /larry IBARRA,RN,CCM TRANSFER/TRAVELING COORDINATOR Signed: 10/02/2024 14:44 JUANITA HASSAN [place] [facility]
--- OUTSIDE RECORDS SUMMARY | 2024-10-02 19:56 | XMS_ITS | Encounter Summary ---
Author Name [facility] of [facility] [place] Organization [facility] [place] Address [address] [place] [address] Care Team Providers Care Reproduction Artist Name Role Phone KANDY LINDER Primary Care Provider RACHEAL Turner Primary Care Provide r Unavailable Selected Encounter This section includes the information on record at [place] for the Encounter. Date/Time Encounter Type Encounter Description Reason Pro vider Source Jul 11, 2024 01:11 PM Outpatient Encounter COMMUNITY CARE CONSULT IHE Encounter Template Text not used by [place] Social History: Smoking Status (Most current) and Tobacco Use (All prior to encounter date) This section includes the most current, and the historical, smoking and tobacco- related health factors from the [place] facility where the Encounter took place. Current Smoking Status This section includes the most current smoking, or tobacco-related health factor, from the [place] facility where the Encounter took place. Date/Time Current Smoking Status Comment Facil ity Feb 15, 2021 02:29 PM VA-TOBACCO USER SOME DAYS [facility] Tobacco Use History This section includes a history of the smoking, or tobacco-related health factors, that were collected on or before the date of the Encounter. The data comes from the [place] facility where the Encounter took place. Date/Time Smoking Status/Tobacco Use Comment F acility Feb 15, 2021 02:29 PM VA-TOBACCO USE 30 YEARS OR MORE [facility] Feb 15, 2021 02:29 PM VA-TOBACCO USE ADVICE [facility] [place] [facility] Feb 15, 2021 02:29 PM VA-TOBACCO USE TEEN COUNSELOR NO [facility] [place] [facility] Feb 15, 2021 02:29 PM VA-TOBACCO USE MED NO [facility] [place] [facility] Feb 15, 2021 02:29 PM VA-TOBACCO USER SOME DAYS [facility] [place] [facility] Jul 08, 2009 04:12 PM QUIT TOBACCO USE IN PAST YEAR [facility] [place] [facility] May 13, 2003 03:50 PM CURRENT SMOKER VA C [facility] [place] [facility] Encounter Notes: All associated encounter notes This section contains the clinical notes associated to the Encounter. Date/Time Encounter Note(s) Provider Source Jul 11, 2024 01:11 PM NONVA NOTE: [facility] TITLE: [facility] SELF PRESENTING CARE COORD PLAN STANDARD TITLE: NONVA NOTE DATE OF NOTE: JUL 11, 2024@13:11 ENTRY DATE: JUL 11, 2024@13:11:54 AUTHOR: DEMARIO ROSE EXP COSIGNER: URGENCY: STATUS: COMPLETED Emergency Notification Intake Date Presenting to the Facility: Jun Method of Contact: Notified from ECR worklist Notification ID: [id number] [facility] Referral #: [facility] Name: Hospital: [facility] Address: City: [place] State: [place] Zip Code: Phone : [facility] Point of Contact: Name: Brenna Phone: Chief complaint: SZ FROM SNF PER EMS Primary Diagnosis: SYMPTOMATIC BRADYCARDIA VS SEIZURE Disposition Admitted Route of Admission: ER Date of Admission: Jun Admitting Diagnosis: SYMPTOMATIC BRADYCARDIA VS SEIZURE Community Care Provider: Confirm Level of Care: /larry BERNAL Signed: 07/11/2024 13:13 Receipt Acknowledged By: * AWAITING SIGNATURE * OSMIN BAPTISTE 10/02/2024 10:46 /francia/ Indu IBARRA,RN,[facility] TRANSFER/TRAVELING COORDINATOR * AWAITING SIGNATURE * JOANNA DIXON * AWAITING SIGNATURE * JEFF ROBERT DAWN MARIE PALISADE
== END 2024-10-01 15:38 | disposition short-term general hospital (02) ==
PROVIDERS: Emergency Provider Emergency Medicine; PCP Internal Medicine Interventional Cardiology
DX: R00.1 Bradycardia, unspecified (principal); R00.9 Unspecified abnormalities of heart beat; E11.9 Type 2 diabetes mellitus without complications; N40.0 Benign prostatic hyperplasia without lower urinary tract symptoms; G30.9 Alzheimer's disease, unspecified; F02.80 Dementia in other diseases classified elsewhere, unspecified severity, without behavioral disturbance, psychotic disturbance, mood disturbance, and anxiety; Z79.899 Other long term (current) drug therapy
CPT/HCPCS: 36415; 71045; 80053; 84484; 85025; 85610; 85730; 93005; 99285

== ENCOUNTER → 2024-10-01 10:12 | Outpatient (BNV) | payer OTHER, SELFPAY | PROVIDERS: Emergency Provider Emergency Medicine; PCP Internal Medicine Interventional Cardiology; Visit Provider Internal Medicine Cardiovascular Disease | DX: R94.31 Abnormal electrocardiogram [ECG] [EKG] (principal) | CPT/HCPCS: 93010 ==

== ENCOUNTER → 2024-11-25 23:59 | Outpatient (BNV) | payer OTHER, SELFPAY ==
--- NOTE | 2024-12-05 14:22 | MHC.OFFVIS ---
Intake Visit Reasons: Remote ILR check- [facility] Allergies codeine Allergy (Verified 10/01/24 10:16) Unknown Penicillins Allergy (Verified 10/01/24 10:16) Unknown [facility] Medical History Pica BPH (benign prostatic hyperplasia) Diabetic polyneuropathy Type 2 diabetes mellitus Seizure disorder Alzheimer's dementia Social History Household Members: Other Unable to assess alcohol history related to: Unable to respond Patient Tobacco Use Status: Never used Tobacco Advance Directives Date on File: 07/08/24 service: Yes Office Procedures Cardiac Device Check Cardiac Device Check Details: Remote implantable loop recorder report generated 11/25/2024. No pauses noted [id number] Cardiac Interrogation, subcut cardiac rhythm monitor Procedure code (CPT) selection complete Assessment & Plan Assessment & Plan (1) Symptomatic bradycardia: Code(s): R00.1 - Bradycardia, unspecified Category: Medical Plan: See above Coding Level of Care Code Procedure Only Diagnoses Symptomatic bradycardia R00.1 CPT Codes Cardiac Device Check - Cardiac Device 16: [id number] Cardiac Interrogation, subcut cardiac rhythm monitor ([id number])
== END ==
PROVIDERS: PCP Internal Medicine Interventional Cardiology; Visit Provider Internal Medicine Cardiovascular Disease
DX: R00.1 Bradycardia, unspecified (principal); Z95.818 Presence of other cardiac implants and grafts
CPT/HCPCS: 93298

== ENCOUNTER 2024-12-06 13:10 | Outpatient (REF) | payer OTHER, SELFPAY ==
--- OUTSIDE RECORDS SUMMARY | 2024-12-06 13:28 | XMS_ITS | Clinical Summary ---
Author Organization [employer] Address [address] [place] [address] Care Team Providers Care Tactical Air Control Party Name Role Phone Unavailable Primary Care Provider Unavailabl e Allergies Active Allergy Reactions Criticality Noted Date Comments Codeine 06/28/2023 Penicillins 06/28/2023 Medications divalproex sprinkle (Depakote Sprinkle) [address] capsule Take 125 mg by mouth 2 times daily. Active QUEtiapine (SEROquel) 25 MG tablet Take 25 mg by mouth at bedtime. Active risperiDONE (RisperDAL) 0.25 MG tablet Take 0.25 mg by mouth 2 times daily. Active risperiDONE (RisperDAL) 0.5 MG tablet Take 0.5 mg by mouth 2 times daily. Active acetaminophen (Tylenol) 325 MG tablet Take by mouth. Active bisacodyl (Dulcolax) 5 MG EC tablet Take 5 mg by mouth if needed each day for constipation . Do not crush, chew, or split. Active LORazepam (Ativan) 0.5 MG tablet Take by mouth. Active TraZODone & Diet Manage Prod (TRAZAMINE PO) Take by mouth. Active apixaban (Eliquis) 5 MG tablet Take 1 tablet by mouth every 12 (twelve) hours. 05/07/2021 Active aspirin 81 MG EC tablet Take 1 tablet by mouth in the morning. 05/07/2021 Active divalproex sprinkle (Depakote Sprinkle) [address] capsule 125 mg. 05/07/2021 Activ e donepezil (Aricept) 10 MG tablet 10 mg. 05/07/2021 Active Magnesium Hydroxide (MILK OF MAGNESIA PO) TAKE 2 TABLESPOONFU LS(30 ML) BY MOUTH BEDTIME PRN 05/07/2021 Active memantine (Namenda) 10 MG tablet Take 1 tablet by mouth 2 times daily. 05/07/2021 Active tamsulosin (Flomax) 0.4 MG 24 hr capsule 0.4 mg. 05/07/2021 Activ e traZODone (Desyrel) 50 MG tablet Take 1 tablet by mouth at bedtime. 05/07/2021 Active metFORMIN, OSM, (Fortamet) 500 MG 24 hr tablet Take 500 mg by mouth with evening meal. Do not crush, chew, or split. Active chlorhexidine (Peridex) 0.12 % solution Use 15 mL in the mouth or throat if needed for wound care. Active OLANZapine (ZyPREXA) 2.5 MG tablet at bedtime. Active gabapentin (Neurontin) 100 MG capsule Take by mouth. Active sodium phosphate (Fleet) 3.5-9.5 GM/59ML enema Insert into the rectum. Active loperamide (Imodium A-D) 2 MG tablet Take by mouth if needed in the morning, at noon, in the evening, and at bedtime for diarrhea. Active ondansetron (Zofran) 4 MG tablet Take by mouth. Active glipiZIDE XL (Glucotrol XL) 5 MG 24 hr tablet Take 5 mg by mouth Once per day. Do not crush, chew, or split. Active polyethylene glycol, PEG, 3350 (Miralax) 17 g packet Take by mouth. Active Active Problems No known active problems Encounters Date Type Department Care Team Description 10/29/2024 3:00 PM EST Office Visit [facility] [address] [place] [id number] Елена Eason from Last 3 Months Social History Tobacco Use Types Packs/Day Years Used Date Smoking Tobacco: Unknown Tobacco Cessation:Counseling Given: Not Answered Sex and Gender Information Value Date Recorded Sex Assigned at Male 06/07/2023 2:29 PM EDT Legal Sex Male 2:25 PM EDT Gender Identity Male 06/07/2023 2:29 PM EDT Sexual Orientation Straight 06/07/2023 2: 29 PM EDT Plan of Treatment Health Maintenance Due Date Last Done Comments CT Colonography 1958 Colonoscopy 1958 Colorectal Cancer Screening 1958 Dental X-Ray: Bitewings 1958 Dental X-Ray: Full Mouth 1958 Depression Screening 1958 FIT DNA/Cologuard 1958 FIT 1958 FOBT 1958 Lipid Panel 1958 SDOH Screening 1958 Sigmoidoscopy 1958 Alcohol/Substance Use Screening 1970 Hepatitis C Screening 1976 Pneumococcal Vaccine: 50+ Years (1 of 1 - PCV) 2008 12/17/2013 COVID-19 Vaccine (3 - season) 2024 02/11/2021, 01/14/2021 Influenza Vaccine (#1) 2024 , 07/10/2019, 08/10/2018, Additional history exists Dental Oral Exam 12/25/2024 06/26/2024, , 06/28/2023 Dental Prophylaxis 04/29/2025 10/29/2024, 1 , 05/01/2024, Additional history exists DTaP/Tdap/Td Vaccines (3 - Td or Tdap) 10/09/2025 10/09/2015, 10/09/2015, 08/08/2013 Tobacco Screening 10/29/2025 10/29/2024 RSV Patients and Patients Aged 60 years or older (1 - 1-dose 75+ series) 2033 Zoster Vaccines Completed 07/07/2020, 12/26/2019 HIB Vaccines Aged Out No longer eligi ble based on patient's age to complete this topic HPV Vaccines Aged Out No longer eligi ble based on patient's age to complete this topic Hepatitis A Vaccines Aged Out No long er eligible based on patient's age to complete this topic Hepatitis B Vaccines Aged Out No long er eligible based on patient's age to complete this topic IPV Vaccines Aged Out No longer eligi ble based on patient's age to complete this topic Meningococcal Vaccine Aged Out No joshua edna eligible based on patient's age to complete this topic RSV under 20 months Aged Out No longe r eligible based on patient's age to complete this topic Rotavirus Vaccines Aged Out No longer eligible based on patient's age to complete this topic Procedures Procedure Name Priority Date/Time Associated Diagnosis Comments BEHAVIOR MANAGEMENT Routine 10/29/2024 3:00 PM EST TOPICAL APPLICATION OF FLUORIDE VARNISH Routine 10/29/2024 3:00 PM EST PROPHYLAXIS - ADULT Routine 10/29/2024 3:00 PM EST PERIODIC ORAL EVALUATION - ESTABLISHED PATIENT Routine 06/26/2024 11:00 AM EDT from Last 3 Months or Most Recently Relevant to Health Maintenance Advance Directives Documents on File Type Date Recorded Patient Psychological Assistant Expl anation HealthCare Proxy 06/29/2023 Healthcare Proxy
--- OUTSIDE RECORDS SUMMARY | 2024-12-06 13:28 | XMS_ITS | Encounter Summary ---
Author Name [facility] [place] Organization [facility] [place] [place] [facility] [place] Address [address] [place] [address] Care Team Providers Care Purchasing Buyer Name Role Phone KANDY LINDER Primary Care Provider RACHEAL Turner Primary Care Provide r Unavailable Selected Encounter This section includes the information on record at [place] for the Encounter. Date/Time Encounter Type Encounter Description Reason Pro vider Source Dec 03, 2024 04:00 PM Outpatient Encounter DENTAL IHE Encounter Template Text not used by [place] Plan of Treatment: Future Appointments (+ 6 months) and Future Tests (+/- 45 days) The Plan of Treatment section includes future care activities for the patient from all [place] treatmentfacilities. This section includes future appointments and future orders which are active, pending or scheduled. Active, Pending, and Scheduled Orders This section includes a listing of several types of active, pending, and scheduled orders, including clinic medications orders, diagnostic test orders, procedure orders and consult orders; where the start date of the order is 45 days before the date of the Encounter or 45 days after the date of theEncounter. The data comes from all [place] treatment facilities. Test Date/Time Test Type Test Details Facility Name Dec 03, 2024 02:44 PM Consult Order DENTAL CON SULT OUTPT [facility] Dec 03, 2024 02:44 PM Consult Order COMMUNITY CARE-CARDIOLOGY [facility] Social History: Smoking Status (Most current) and Tobacco Use (All prior to encounter date) This section includes the most current, and the historical, smoking and tobacco- related health factors from the [place] facility where the Encounter took place. Current Smoking Status This section includes the most current smoking, or tobacco-related health factor, from the [place] facility where the Encounter took place. Date/Time Current Smoking Status Comment Facil ity Feb 15, 2021 02:29 PM VA-TOBACCO USER SOME DAYS [place] [facility] [place] [facility] Tobacco Use History This section includes a history of the smoking, or tobacco-related health factors, that were collected on or before the date of the Encounter. The data comes from the [place] facility where the Encounter took place. 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 Date/Time Encounter Note(s) Provider Source Dec 03, 2024 04:00 PM DENTISTRY TELEPHON E ENCOUNTER NOTE: LOCAL TITLE: TELEPHONE NOTE/DENTAL STANDARD TITLE: DENTISTRY TELEPHONE ENCOUNTER NOTE DATE OF NOTE: DEC 03, 2024@16:00 ENTRY DATE: DEC 03, 2024@16:00:26 AUTHOR: JOBY IBARRA EXP COSIGNER: URGENCY: STATUS: COMPLETED TELEPHONE NOTE/DENTAL Has ADDENDA [facility] Toll Free Number Primary Care Telephone Assistance can be reached at ext. [phone] option 2 [facility] scheduling can be reached at ext. [phone] option 2 [facility] scheduling can be reached at ext. [phone] option 3 DEC 03, 2024 DONOVAN ANDERSON [address] [place], [place] [address] Dear DONOVAN ANDERSON Our records indicate you are due for an appointment in Dental Clinic Thank you for choosing the Department [facility] ([place]) [facility] as your primary choice for health care. As a partner in your health care, we are contacting you in writing since we have been unsuccessful in our attempts to reach you to date. We want to assure you we are doing everything possible to schedule Veterans for their [place] medical care appointments. If you would like to be seen, please contact [facility] at [phone] Ext. [phone] Option 3 to schedule an appointment. Thank you for your service to our nation, and we look forward to hearing from you soon. Sincerely, [facility] [address] [place] [address] [place] [address] ext. [phone] [facility] [address] [place] [address] [place] [address] [phone] [facility] [address] [address] [place] [address] ext. [phone] [facility] [address] [place] [address] ext. [phone] /francia/ JOBY IBARRA ADVANCED CLIENT SUPPORT ASSOCIATE Signed: 12/03/2024 16:02 12/03/2024 ADDENDUM STATUS: COMPLETED ADMINISTRATIVE CONTACT HAS orders: [facility] Able to contact patient: Spoke to Patient/Patient sales service representative per policy utilizing HIPAA Guidelines. Attempts to contact: 1st attempt: Left voicemail 2nd attempt: Letter mailed Disposition on Nov 3rd attempt: 4th attempt: /francia/ JOBY IBARRA ADVANCED CLIENT SUPPORT ASSOCIATE Signed: 12/03/2024 16:03 JOBY IBARRA [place] [facility]
--- OUTSIDE RECORDS SUMMARY | 2024-12-06 13:28 | XMS_ITS ---
Author Name [facility] Organization [facility] [place] Address [address] [place] [address] Care Team Providers Care Solar Photovoltaic Designer Name Role Phone KANDY LINDER Primary Care Provider RACHEAL Turner Primary Care Provide r Unavailable Selected Encounter This section includes the information on record at [place] for the Encounter. Date/Time Encounter Type Encounter Description Reason Pro vider Source Dec 02, 2024 12:07 PM Outpatient Encounter ADMIN PAT ACTIVTIES (MASNONCT) IHE Encounter Template Text not used by [place] Plan of Treatment: Future Appointments (+ 6 months) and Future Tests (+/- 45 days) The Plan of Treatment section includes future care activities for the patient from all [place] treatmentfacilities. This section includes future appointments and [...] of theEncounter. The data comes from all [place] treatment facilities. Test Date/Time Test Type Test Details Facility Name Dec 03, 2024 02:44 PM Consult Order DENTAL CON SULT OUTPT [facility] Dec 03, 2024 02:44 PM Consult Order COMMUNITY CARE-CARDIOLOGY Cons [facility] Social History: Smoking Status (Most current) and Tobacco Use (All prior to encounter date) This section includes the most current, and the historical, smoking and tobacco- related health factors from the [place] facility where the Encounter took place. Current Smoking Status This section includes the most current smoking, or tobacco-related health factor, from the [place] facility where the Encounter took place. Date/Time Current Smoking Status Comment Facil ity Feb 15, 2021 02:29 PM VA-TOBACCO USER SOME DAYS [facility] [place] [facility] Tobacco Use History This section includes a history of the smoking, or tobacco-related health factors, that were collected on or before the date of the Encounter. The data comes from the [place] facility where the Encounter took place. 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 Date/Time Encounter Note(s) Provider Source Dec 02, 2024 12:07 PM ADMINISTRATIVE NOT E: LOCAL TITLE: CCC: SCHEDULING ADMINISTRATION STANDARD TITLE: ADMINISTRATIVE NOTE DATE OF NOTE: DEC 02, 2024@12:07:52 ENTRY DATE: DEC 02, 2024@12:07:52 AUTHOR: GINI CARDOZA COSIGNER: URGENCY: STATUS: COMPLETED CCC: SCHEDULING ADMINISTRATION Has ADDENDA Patient Demographics Patient Name: DONOVAN ANDERSON Patient Primary Phone: [phone] Patient Primary Address: [address] [place] [id number] Patient : 1960 Patient Age: 64 Call Back Number: [phone] Caller/Recipient Relation to Patient: Other If Other Describe Relation to Patient: RN with [facility] Caller Name: Ingris Administrative Administrative Note Reason: Other Administrative Note Comments: Ingris RN with [facility] at [phone] is kindly requesting a referral be placed for Dental and Cardiology. Ingris requesting a call back from [facility] to confirm. IMPORTANT: This note was created by [facility] staff. Please do not alert the staff member by adding them as a signer for future communications. Alerts are not monitored by this user. /es/ GINI NUGENT 1 [facility] Signed: 12/02/2024 12:07 Receipt Acknowledged By: 12/04/2024 13:12 /es/ SILVIA AVILES LPN LPN 12/03/2024 14:12 /es/ JAYLEN DEE RN REGISTERED NURSE 12/03/2024 ADDENDUM STATUS: COMPLETED Spoke with Ingris RN with [facility] at [phone]. She states a new cardiology consult is needed with [facility] for removal of Loop monitor. She also requested for dental consult for teeth extraction under anesthesia due to 's severe dementia. Consults placed and held for PCP signature if appropriate. /francia/ JAYLEN DEE RN REGISTERED NURSE Signed: 12/03/2024 14:12 12/03/2024 ADDENDUM STATUS: COMPLETED I spoke with DEVEN Amado at the [facility] where the Liberal resides. He sees Cardiology at [facility] and has an active referral, however he is in need of his loop recorder to be removed by Dr Mon at [facility] as that is where it was placed. The Liberal now has a Pacemaker. The appt was already arranged for this Monday between the Doctor at [facility] and Dr. Mon, however it has been cancelled d/t no auth in place at [facility]. Ingris will call [facility] in the morning to see if the appt can be reinstated as long as transportation can be arranged as well. He has a bene travel consult in place so once the appt is scheduled travel can be arranged. Ingris can be reached at [phone] - will ask [facility] RN to please let her know when the auth has been created and she will ensure to arrange appt and transportation. /es/ JEFFERY CHENG RN Referral Coordination Initiative Nurse Signed: 12/03/2024 16:24 [facility]
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
--- NOTE | 2024-12-06 13:49 | PM.OP ---
Brief Operative Note Date of Service: 12/06/24 Pre-op diagnosis: Implantable loop recorder in place Post-op diagnosis: same Procedure: Removal of implantable loop recorder Implants: After obtaining telephone consent in presence of the nurse from his , patient was laid on the supine table and minor surgery suite. Patient is precordial area was then prepped and draped in a sterile fashion. Patient was then given 2% lidocaine with epinephrine intradermally and subcutaneously around the header of the device. It was a difficult procedure as patient has cognitive issues and was not able to follow instructions. However with the help of the nurse and the ROOF TILE LAYER variable to hold the patient. The [employer] implantable loop recorder was then removed using Shonna forcep. The wound was then closed with Steri-Strips and pressure dressing applied Surgeon: Srinivas Mon MD Anesthesia: local Was an Research Assistant Member used for this Procedure?: Yes Research Assistant Member: Ricardo Avalos Estimated blood loss (mL): 3 Pathology: none sent Condition: stable Disposition: same day
== END 2024-12-06 13:11 | disposition home or self-care (01) ==
LOC: HO.MS 13:10
PROVIDERS: Visit Provider Internal Medicine Cardiovascular Disease
PROC: (CPT 33285; principal; 2024-12-06 13:00)
DX: Z45.09 Encounter for adjustment and management of other cardiac device (principal); Z95.818 Presence of other cardiac implants and grafts
CPT/HCPCS: 33286; J2004

== ENCOUNTER → 2024-12-06 13:10 | Outpatient (BNV) | payer OTHER, SELFPAY | PROVIDERS: Visit Provider Internal Medicine Cardiovascular Disease | DX: Z45.09 Encounter for adjustment and management of other cardiac device (principal) | CPT/HCPCS: 33286 ==

== ENCOUNTER 2024-12-31 07:11 | Outpatient (REF) | payer OTHER, SELFPAY ==
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
--- OUTSIDE RECORDS SUMMARY | 2024-12-31 07:15 | XMS_ITS | Clinical Summary ---
Author Organization [employer] Address [address] [facility] [address] [place] [address] Care Team Providers Care Blow Mold Machine Operator Name Role Phone Unavailable Primary Care Provider [...] Description 10/29/2024 3:00 PM EST Office Visit [facility] [address] [place] [address] Елена Eason from Last 3 Months Social [...] Documents on File Type Date Recorded Patient Livestock Handler Expl anation HealthCare Proxy 06/29/2023 Healthcare Proxy
[2024-12-31 07:43] LABS: Valproate 47.2 mcg/mL (50.0-100.0)
[2024-12-31 07:46] LABS: Alanine Aminotransferase 11 U/L (0-40); Aspartate Amino Transferase 19 U/L (5-37)
== END 2024-12-31 07:12 | disposition home or self-care (01) ==
LOC: HO.HSH 07:11
PROVIDERS: Visit Provider Internal Medicine Interventional Cardiology
DX: R56.9 Unspecified convulsions (principal)
CPT/HCPCS: 36415; 80164; 84450; 84460

== ENCOUNTER 2025-02-11 07:50 | Outpatient (REF) | payer OTHER, SELFPAY ==
--- OUTSIDE RECORDS SUMMARY | 2025-02-11 07:56 | XMS_ITS | Encounter Summary ---
Author Organization [employer] Address [address] [facility] [address] [place] [address] Care Team Providers Care Solar Installer Name Role Phone Unavailable Primary Care Provider Unavailabl e Reason for Visit * Reason Comments Routine Cleaning Encounter Details Date Type Department Care Team (Late st Contact Info) Description 02/06/2025 10:30 AM EDT Office Visit [facility] [address] [place] [address] Елена Eason [address] [place], [place] [phone] Social History Tobacco Use Types Packs/Day Years Used Date Smoking Tobacco: Unknown Sex and Gender Information Value Date Recorded Sex Assigned at Male 06/07/2023 2:29 PM EDT Legal Sex Male 2:25 PM EDT Gender Identity Male 06/07/2023 2:29 PM EDT Sexual Orientation Straight 06/07/2023 2: 29 PM EDT documented as of this encounter Progress Notes * Елена Eason - 02/06/2025 10:30 AM EDT Patient ID: Nick Nuñez V is a 64 y.o. male. Time Out: Timeout Date: 02/06/25, Timeout Time: 1015 Location: [facility] Tooth: Maxilla and Mandible Procedure: Prophylaxis Verified the above with Nurses. Confirmed via patient's chart, intraorally and by radiographs. Medical Hx: Medications and Med Hx reviewed from paperwork given by nurses. Updated in chart. Treatment Provided Dental procedures in this visit There are no dental procedures in this visit. Pt was seen on floor [address] Instruments Used: Toothbrush prophy only , bite block Fluoride: 5% NaF varnish applied and POI given Oral Cancer Screening: No lesions Head/Neck Exam: No Lesions Calculus: Heavy and Generalized - holding in lower anteriors Plaque: Moderate and Generalized Stain: Light and Localized Bleeding: Heavy and Generalized Gingiva: Erythematous and inflamed [place]: Poor Perio Chart: Not Completed - unable to complete on the floor Oral hygiene instructions provided to patient including brushing technique and flossing. Recommendations: [place] two times daily, modified munoz technique, Floss daily, Soft bristle toothbrush Recall Frequency: 3 mo Behavior: Pt has very strong lip and doesn't like to open wide. Pt is very sweet but difficult to see in pts mouth. Pt likes to grab everything making it difficult for provider to use instruments - calculus is holding teeth in place NV: 3 mo recall Hygienist: Елена Eason RDH documented in this encounter Plan of Treatment Not on file documented as of this encounter Procedures Procedure Name Priority Date/Time Associated Diagnosis Comments TOPICAL APPLICATION OF FLUORIDE VARNISH Routine 02/06/2025 10:30 AM EDT PROPHYLAXIS - ADULT Routine 02/06/2025 1 0:30 AM EDT BEHAVIOR MANAGEMENT Routine 02/06/2025 1 0:30 AM EDT documented in this encounter Visit Diagnoses Not on filedocumented in this encounter
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
--- OUTSIDE RECORDS SUMMARY | 2025-02-11 07:56 | XMS_ITS | Clinical Summary ---
Author Organization [employer] Address [address] [facility] [address] [place] [address] Care Team Providers Care Mixing Engineer Name Role Phone Unavailable Primary Care Provider [...] (Tylenol) 325 MG tablet Take by mouth. Activ e bisacodyl (Dulcolax) 5 MG EC tablet Take 5 mg by mouth if needed each day for constipation. Do not crush, chew, or split. Active LORazepam (Ativan) 0.5 MG tablet Take by mouth. Activ e TraZODone & Diet Manage Prod (TRAZAMINE PO) Take by mouth. Activ e apixaban (Eliquis) 5 MG tablet Take 1 tablet by mouth every 12 (twelve) hours. 1 Active aspirin 81 MG EC tablet Take 1 tablet by mouth in the morning. 1 Active divalproex sprinkle (Depakote Sprinkle) [address] capsule 125 mg. 1 Active donepezil (Aricept) 10 MG tablet 10 mg. 1 Active Magnesium Hydroxide (MILK OF MAGNESIA PO) TAKE 2 TABLESPOONFULS( 30 ML) BY MOUTH BEDTIME PRN 1 Active memantine (Namenda) 10 MG tablet Take 1 tablet by mouth 2 times daily. 1 Active tamsulosin (Flomax) 0.4 MG 24 hr capsule 0.4 mg. 1 Active traZODone (Desyrel) 50 MG tablet Take 1 tablet by mouth at bedtime. 1 Active metFORMIN, OSM, (Fortamet) 500 MG 24 hr tablet Take 500 mg by mouth with evening meal. Do not crush, chew, or split. Active chlorhexidine (Peridex) 0.12 % solution Use 15 mL in the mouth or throat if needed for wound care. Active OLANZapine (ZyPREXA) 2.5 MG tablet at bedtime. Active gabapentin (Neurontin) 100 MG capsule Take by mouth. Acti ve sodium phosphate (Fleet) 3.5-9.5 GM/59ML enema Insert into the rectum. Active loperamide (Imodium A-D) 2 MG tablet Take by mouth if needed in the morning, at noon, in the evening, and at bedtime for diarrhea. Active ondansetron (Zofran) 4 MG tablet Take by mouth. Activ e glipiZIDE XL (Glucotrol XL) 5 MG 24 hr tablet Take 5 mg by mouth Once per day. Do not crush, chew, or split. Active polyethylene glycol, PEG, 3350 (Miralax) 17 g packet Take by mouth. Act mikayla Midazolam (Nayzilam) 5 MG/0.1ML solution Administer into affected nostril(s). Active Active Problems No known active problems Encounters Date Type Department Care Team Description 02/06/2025 10:30 AM EDT Office Visit [facility] [address] [place] [address] Елена Eason from Last 3 Months Social [...] Exam 12/25/2024 06/26/2024, , 06/28/2023 Dental Prophylaxis 08/09/2025 02/06/2025, 0 10/29/2024, 08/07/2024, Additional history exists DTaP/Tdap/Td Vaccines (3 - Td or Tdap) 10/09/2025 10/09/2015, 10/09/2015, 08/08/2013 Tobacco Screening 02/06/2026 02/06/2025 RSV Patients and Patients Aged 60 years [...] MANAGEMENT Routine 02/06/2025 1 0:30 AM EDT PERIODIC ORAL EVALUATION - ESTABLISHED PATIENT Routine 06/26/2024 11:00 AM EDT from Last 3 Months or Most Recently Relevant to Health Maintenance Advance Directives Documents on File Type Date Recorded Patient Appraiser Oil And Water Expl anation HealthCare Proxy 06/29/2023 Healthcare Proxy
[2025-02-11 08:22] LABS: Valproate 34.2 mcg/mL (50.0-100.0)
== END 2025-02-11 07:51 | disposition home or self-care (01) ==
LOC: HO.HSH2N 07:50
PROVIDERS: Visit Provider Nurse Practitioner
DX: R56.9 Unspecified convulsions (principal)
CPT/HCPCS: 36415; 80164

== ENCOUNTER 2025-03-24 19:26 | Outpatient (REF) | payer MEDICARE, SELFPAY ==
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
== END 2025-03-24 19:27 | disposition home or self-care (01) ==
LOC: HO.HSH2N 19:26
PROVIDERS: Visit Provider Internal Medicine Interventional Cardiology
DX: R56.9 Unspecified convulsions (principal); F03.90 Unspecified dementia, unspecified severity, without behavioral disturbance, psychotic disturbance, mood disturbance, and anxiety; Z51.81 Encounter for therapeutic drug level monitoring; Z79.899 Other long term (current) drug therapy
CPT/HCPCS: 36415; 80164